=== PATIENT | male | born 1935 | race Caucasian/White ===

== ENCOUNTER 2023-04-04 10:54 | Outpatient (OUT) | payer MEDICARE, BC, SELFPAY ==
[2023-04-04 12:01] LABS: Estimated Average Glucose 169 mg/dL; Glycohemoglobin A1C 7.5 % (4.5-6.2)
== END 2023-04-04 10:55 | disposition home or self-care (01) ==
LOC: LAB 10:55
PROVIDERS: PCP Internal Medicine; Visit Provider Internal Medicine
DX: E11.65 Type 2 diabetes mellitus with hyperglycemia (principal)
CPT/HCPCS: 36415; 83036

== ENCOUNTER 2023-11-20 09:33 | Outpatient (OUT) | payer MEDICARE, BC, SELFPAY ==
[2023-11-21 08:11] LABS: PSA, Free 1.13 ng/mL
== END 2023-11-20 09:34 | disposition home or self-care (01) ==
LOC: LAB 09:35
PROVIDERS: PCP Internal Medicine; Visit Provider Physician Assistant
DX: N40.1 Benign prostatic hyperplasia with lower urinary tract symptoms (principal); R97.20 Elevated prostate specific antigen [PSA]
CPT/HCPCS: 36415; 84153; 84154

== ENCOUNTER 2023-11-20 09:39 | Outpatient (OUT) | payer MEDICARE, BC, SELFPAY ==
[2023-11-20 10:36] LABS: Basophils Percent Auto 0.7 % (0.2-2.0); Eosinophils Absolute Auto 0.7 10^3/uL (0.0-0.7); Eosinophils Percent Auto 11.2 % (0.9-7.0); Hematocrit 40.9 % (42.0-54.0); Immature Granulocytes Abs Auto 0.01 10^3/uL (0.00-0.03); Immature Granulocytes Pct Auto 0.2 % (0.0-0.5); Lymphocytes Absolute Auto 1.5 10^3/uL (1.2-3.8); Lymphocytes Percent Auto 26.2 % (20.5-60.0); Mean Corpuscular HGB Conc 31.8 g/dL (29.9-35.2); Mean Corpuscular Hemoglobin 27.8 pg (25.9-34.0); Mean Corpuscular Volume 87.4 fL (80.0-94.0); Mean Platelet Volume 9.8 fL (9.5-13.5); Monocytes Absolute Auto 0.5 10^3/uL (0.3-0.8); Monocytes Percent Auto 8.7 % (1.7-12.0); Neutrophils Absolute Auto 3.1 10^3/uL (1.4-6.5); Platelet Count 239 10^3/uL (150-450); Red Blood Count 4.68 10^6/uL (4.70-6.10); Red Cell Distribution Width 13.2 % (11.0-15.0); White Blood Count 5.9 10^3/uL (4.0-11.0)
[2023-11-20 10:42] LABS: Estimated Average Glucose 177 mg/dL; Glycohemoglobin A1C 7.8 % (4.5-6.2)
[2023-11-20 10:42] LABS: Microalbumin Urine Random 24.3 mg/dL (<=30.0)
[2023-11-20 10:44] LABS: Alanine Aminotransferase 22 U/L (16-63); Albumin Globulin Ratio 0.9; Albumin Level 3.2 g/dL (3.4-5.0); Alkaline Phosphatase 83 U/L (46-116); Anion Gap 12.2; Aspartate Amino Transferase 15 U/L (15-37); BUN Creatinine Ratio 13.3; Bilirubin Total 0.5 mg/dL (0.2-1.0); Calcium 8.6 mg/dL (8.5-10.1); Carbon Dioxide 27.8 mmol/L (21.0-32.0); Chloride 104 mmol/L (98-107); Chol HDL Ratio 2.8; Cholesterol 150 mg/dL (<=200); Estimated GFR (African America >60 (>=60); Estimated GFR (Non-African Ame >60 (>=60); Globulin 3.7 g/dL; Glucose 88 mg/dL (74-106); HDL Cholesterol 54 mg/dL (40-60); LDL Cholesterol Calculated 82.6 mg/dL; Sodium 140 mmol/L (136-145); Total Protein 6.9 g/dL (6.4-8.2); Triglycerides 67 mg/dL (<=150); VLDL CHOLESTEROL 13.4 mg/dL
== END 2023-11-20 09:40 | disposition home or self-care (01) ==
LOC: LAB 09:40
PROVIDERS: PCP Internal Medicine; Visit Provider Internal Medicine
DX: N40.1 Benign prostatic hyperplasia with lower urinary tract symptoms (principal); R97.20 Elevated prostate specific antigen [PSA]; E11.42 Type 2 diabetes mellitus with diabetic polyneuropathy; E11.65 Type 2 diabetes mellitus with hyperglycemia; I10 Essential (primary) hypertension
CPT/HCPCS: 36415; 80053; 80061; 82043; 83036; 84153; 84154; 85025

== ENCOUNTER 2024-05-29 11:00 | Outpatient (OUT) | payer MEDICARE, BC, SELFPAY ==
[2024-05-29 12:15] LABS: Estimated Average Glucose 148 mg/dL; Glycohemoglobin A1C 6.8 % (4.5-6.2)
== END 2024-05-29 11:01 | disposition home or self-care (01) ==
LOC: LAB 11:02
PROVIDERS: PCP Internal Medicine; Visit Provider Internal Medicine
DX: E11.65 Type 2 diabetes mellitus with hyperglycemia (principal)
CPT/HCPCS: 36415; 83036

== ENCOUNTER 2024-09-27 08:09 | Outpatient (OUT) | payer MEDICARE, BC, SELFPAY ==
--- OUTSIDE RECORDS SUMMARY | 2024-09-27 08:31 | XMS_ITS | CCD ---
Author Organization [facility] Care Team Providers Care Dispatch Specialist Name Role Phone Glenn Boswell Unavailable GLENN BOSWELL Primary Care Physician [phone] ELBERT, DR HERNANDEZ Admitting Unavailable BALL, DR HERNANDEZ Attending Unavailable BALL, DR HERNANDEZ Primary Care Unavailable BALL, DR HERNANDEZ Consulting Unavailable BALL, DR HERNANDEZ Admitting Unavailable BALL, DR HERNANDEZ Attending Unavailable BALL, DR HERNANDEZ Primary Care Unavailable BALL, DR HERNANDEZ Consulting Unavailable BALL, DR HERNANDEZ Admitting Unavailable BALL, DR HERNANDEZ Attending Unavailable BALL, DR HERNANDEZ Primary Care Unavailable BALL, DR HERNANDEZ Consulting Unavailable BALL, DR HERNANDEZ Admitting Unavailable BALL, DR HERNANDEZ Attending Unavailable BALL, DR HERNANDEZ Primary Care Unavailable BALL, DR HERNANDEZ Consulting Unavailable LISA, ASHLIE James Attending Unavailable Allergies Allergy Classification Reported Allergen(s) Allergy Type Date of Onset Reaction(s) Facility (19 sources) Simvastatin Drug Allergy Unknown [facility] Other (1 source) Simvastatin Drug Allergy [facility] Repository (1 source) No Known Medication Allergies; Translations: [No Known Medication Allergies] Propensity to adverse reactions (disorder) [facility] Repository Medications Current Medications Medication Drug Class(es) Dates Sig (Normalized) Sig (Original) amLODIPine 5 mg oral tablet (20 sources) Dihydropyridine Calcium Channel Jazmyn Start: 05-29-2024 take 1 tablet by mouth once daily Amlodipine 5 mg tablet Active 0 .ROUTE .COMPLEX 90 May 29, 2024 9:35am TAKE 1 TABLET BY MOUTH ONCE DAILY Start: 10-07-2023 End: 05-29-2024 take 1 tablet by mouth once daily Amlodipine 5 mg tablet Discontinued 5 MG PO Daily October 07, 2023 12:00am May 29, 2024 9:35am Start: 08-23-2019 amlodipine Ora l, Daily, Refills(s) 0 Start Date: 08/23/19 Status: Ordered take 1 tablet by madhav th once daily amLODIPine Besylate 5 MG TAKE 1 TABLET Orally Once a day for 90 days Active atorvastatin 20 mg oral tablet (18 sources) HMG-CoA Reductase Inhibitor Start: 10-07-2023 take 1 tablet by mouth once daily Atorvastatin 20 mg tablet Active 20 MG PO Daily October 07, 2023 12:00am Start: 12-29-2022 take 1 tablet by madhav th once daily in the evening Atorvastatin Calcium 20 MG 1 tablet Orally Once a day, in evening for 30 days December, Active Contour Next Gen Monitor - (3 sources) Start: 09-25-2023 Contour Next G en Monitor - as directed to check BS daily for 365 days Sep, Active Contour Next Test - (13 sources) Start: 02-07-2023 Contour Next T est - Use to test home BS In Vitro twice daily for 30 days Jan, Active finasteride 5 mg oral tablet (2 sources) 5-alpha Reductase Inhibitor Start: 09-25-2024 take 1 tablet by mouth once daily Finasteride 5 mg tablet Active 5 MG PO Daily 90 90 September 25, 2024 12:00am Start: 11-28-2023 take 1 tablet by madhav th once daily finasteride 5 mg Tab 5 mg = 1 tab(s), Oral, Daily, # 90 tab(s), Refills(s) 3, Pharmacy: [facility], 170, cm, 11/28/23 11:52:00 EDT, Height/Length Dosing, 102.5, kg, 11/28/23 11:52:00 EDT, Weight Dosing Start Date: 11/28/23 Status: Ordered Insulin Nph And Regular Human (20 sources) Insulin Start: 08-31-2024 Insulin Nph An d Regular Human (Novolin 70-30 Flexpen U-100) 100 unit/mL (70-30) insulin pen Active 0 .ROUTE .COMPLEX August 31, 2024 8:55am INJECT 30 UNITS SUBCUTANEOUSLY (UNDER THE SKIN) 30 MINUTES BEFORE BREAKFAST and INJECT 20 UNITS SUBCUTANEOUSLY (UNDER THE SKIN) 30 mins BEFORE evening meal Start: 04-16-2024 End: 08-31-2024 Insulin Nph And Regular Herminia n (Humulin 70/30 U-100 Kwikpen) 100 unit/mL (70-30) insulin pen Discontinued 0 SUBCUT Twice daily April 16, 2024 9:40am August 31, 2024 8:55am inject 30 units subcutaneously 30 MINS before breakfast and 20 units 30 MINUTES BEFORE EVENING MEAL Start: 04-16-2024 Insulin Nph An d Regular Human (Humulin 70/30 U-100 Kwikpen) 100 unit/mL (70-30) insulin pen Active 0 SUBCUT Twice daily 15 April 16, 2024 10:40am inject 30 units subcutaneously 30 MINS before breakfast and 20 units 30 MINUTES BEFORE EVENING MEAL Start: 10-07-2023 End: 04-16-2024 Insulin Nph And Regular Herminia n (Humulin 70/30 U-100 Kwikpen) 100 unit/mL (70-30) insulin pen Discontinued 30 UNIT SUBCUT Once October 07, 2023 12:00am April 16, 2024 9:43am inject 30 units subcutaneously 30 MINS before breakfast and 15 units 30 MINUTES BEFORE EVENING MEAL Start: 10-07-2023 End: 04-16-2024 Insulin Nph And Regular Herminia n (Humulin 70/30 U-100 Kwikpen) 100 unit/mL (70-30) insulin pen Discontinued 30 UNIT SUBCUT Once October 07, 2023 1:00am April 16, 2024 10:43am inject 30 units subcutaneously 30 MINS before breakfast and 15 units 30 MINUTES BEFORE EVENING MEAL Start: 10-07-2023 Insulin Nph An d Regular Human (Humulin 70/30 U-100 Kwikpen) 100 unit/mL (70-30) insulin pen Active 30 UNIT SUBCUT Once October 07, 2023 1:00am inject 30 units subcutaneously 30 MINS before breakfast and 15 units 30 MINUTES BEFORE EVENING MEAL Start: 10-07-2023 Insulin Nph An d Regular Human (Humulin 70/30 U-100 Kwikpen) 100 unit/mL (70-30) insulin pen Active 30 UNIT SUBCUT Once October 07, 2023 12:00am inject 30 units subcutaneously 30 MINS before breakfast and 15 units 30 MINUTES BEFORE EVENING MEAL HumuLIN 70/30 Kw ikPen (70-30) 100 UNIT/ML inject 30 units subcutaneously 30 MINS before breakfast and 15 units 30 MINUTES BEFORE EVENING MEAL for 26 Active HumuLIN 70/30 Kw ikPen (70-30) 100 UNIT/ML as directed Subcutaneous 26 units SC 30 minute before bkfst and 14 units SC 30 min before evening meal Active lisinopril 40 mg oral tablet (20 sources) Angiotensin Converting Enzyme Inhibitor Start: 06-10-2024 take 1 tablet by mouth once daily Lisinopril 40 mg tablet Active 40 MG PO Daily June 10, 2024 8:01am Start: 05-29-2024 End: 06-10-2024 take 1 tablet by mouth once daily Lisinopril 20 mg tablet Discontinued 0 .ROUTE .COMPLEX May 29, 2024 9:35am June 10, 2024 8:02am TAKE 1 TABLET BY MOUTH ONCE DAILY Start: 10-07-2023 End: 05-29-2024 take 1 tablet by mouth once daily Lisinopril 40 mg tablet Discontinued 40 MG PO Daily October 07, 2023 12:00am May 29, 2024 9:35am Start: 07-05-2023 take 1 tablet by madhav th every twenty-four hours Lisinopril 40 MG 1 tablet Orally Once a day for 90 days Jun, Active Start: 08-23-2019 lisinopril Ora l, Daily, Refills(s) 0 Start Date: 08/23/19 Status: Ordered Lisinopril 40 MG TAKE 1 TABLET DAILY Orally Once a day for 30 days Active Lisinopril 20 MG TAKE 1 TABLET DAILY Orally Once a day Active metFORMIN hydrochloride 1000 mg oral tablet (20 sources) Biguanide Start: 05-29-2024 take 1 tablet by mouth once daily before breakfast Metformin 1,000 mg tablet Active 0 .ROUTE .COMPLEX May 29, 2024 9:35am TAKE 1 TABLET BY MOUTH DAILY IN THE MORNING BEFORE BREAKFAST Start: 10-07-2023 End: 05-29-2024 take 1 tablet by mouth once daily Metformin 1,000 mg tablet Discontinued 1000 MG PO Daily October 07, 2023 12:00am May 29, 2024 9:35am Start: 08-23-2019 metformin Oral , Refills(s) 0 Start Date: 08/23/19 Status: Ordered take 1 tablet by madhav th once daily metFORMIN HCl 1000 MG TAKE 1 TABLET Orally Once a day for 90 days Active Pen Needle, Diabetic (1 source) Start: 05-13-2024 Pen Needle, Diabetic Active 0 .ROUTE .COMPLEX May 13, 2024 9:00pm USE DIRECTED TWICE DAILY tamsulosin hydrochloride 0.4 mg oral capsule (20 sources) alpha-Adrenergi c Jazmyn Start: 10-07-2023 End: 11-22-2024 take 1 capsule by mouth twice daily Tamsulosin 0.4 mg capsule Active 0.4 MG PO Twice daily October 07, 2023 12:00am Start: 08-29-2022 End: 08-24-2023 Tamsulosin HCl 0.4 MG 1 Oral ly twice daily Aug, Active True Metrix Meter w/Device (3 sources) Start: 09-25-[address] w/Device as directed for 30 days True Metrix test strips Sep, Active Problems Active Problems Problem Classification Problem Date Documented Date Episodic/Chronic Abdominal hernia (1 source) Umbilical hernia; Translations: [Umbilical hernia without obstruction or gangrene] Episodic Acute bronchitis (1 source) Acute bronchitis; Translations: [Acute bronchitis due to other specified organisms] Episodic Allergic reactions (19 sources) Allergic contact dermatitis caused by chemical; Translations: [Allergic contact dermatitis due to other chemical products] Episodic Deficiency and other anemia (1 source) Chronic anemia; Translations: [Anemia in other chronic diseases classified elsewhere] Onset: 09-11-2015 Chronic Diabetes mellitus with complications (20 sources) Type 2 diabetes mellitus; Translations: [Type 2 diabetes mellitus with hyperglycemia] Onset: 08-22-2022 Chronic Diabetes mellitus without complication (5 sources) Diabetes mellitus; Translations: [Type 2 diabetes mellitus without complication] Onset: 11-28-2023 02-22-2019 Chronic Diabetes mellitus without complication (1 source) Glycosuria 11-28-2023 Episodic Disorders of lipid metabolism (20 sources) Mixed hyperlipidemia; Translations: [Mixed hyperlipidemia] Onset: 09-23-2016 02-22-2019 Chronic Essential hypertension (20 sources) Essential hypertension; Translations: [Essential (primary) hypertension] Onset: 12-31-2022 02-22-2019 Chronic Genitourinary symptoms and ill-defined conditions (20 sources) Nocturia; Translations: [Increased frequency of urination] Resolved: 01-25-2019 Episodic Gout and other crystal arthropathies (1 source) Primary gout; Translations: [Idiopathic gout, unspecified site] Chronic Headache; including migraine (4 sources) Headache 02-22-2019 Episodic Hyperplasia of prostate (20 sources) Nocturia due to benign prostatic hypertrophy; Translations: [Benign prostatic hyperplasia with lower urinary tract symptoms] Onset: 10-21-2022 Chronic Immunizations and screening for infectious disease (2 sources) Vaccination given; Translations: [Encounter for immunization] Episodic Osteoarthritis (7 sources) Arthritis; 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, primary osteoarthritis of the hand] Onset: 10-28-2013 02-22-2019 Chronic Other aftercare (20 sources) Long-term current use of insulin; 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] 10-07-2023 Episodic Other aftercare (9 sources) intermodal truck driver (current) use of insulin; Translations: [Long-term (current) use of insulin] Episodic Other aftercare (6 sources) Other intermediate project manager (current) drug therapy; Translations: [OTH HUMAN RESOURCES BENEFITS ADMINISTRATOR CURRENT DRUG THERAPY] Onset: 12-29-2022 Episodic Other aftercare (1 source) Long-term current use of drug therapy; Translations: [Other residential (current) drug therapy] Episodic Other diseases of veins and lymphatics (4 sources) Venous insufficiency of leg; Translations: [Venous insufficiency (chronic) (peripheral)] 10-11-2023 Episodic Other diseases of veins and lymphatics (4 sources) Venous insufficiency (chronic) (peripheral); Translations: [Venous (peripheral) insufficiency, unspecified] 10-11-2023 Episodic Other injuries and conditions due to external causes (1 source) History of fall; Translations: [History of falling] Episodic Other nutritional; endocrine; and metabolic disorders (19 sources) Obese class I; Translations: [Obesity, unspecified] Chronic Other nutritional; endocrine; and metabolic disorders (2 sources) Obesity, unspecified; Translations: [Obesity, unspecified] Chronic Other nutritional; endocrine; and metabolic disorders (16 sources) Body mass index 30+ - obesity; Translations: [Body mass index (BMI) 34.0-34.9, adult] 10-07-2023 Chronic Other nutritional; endocrine; and metabolic disorders (16 sources) Obesity caused by energy imbalance; Translations: [Other obesity due to excess calories] 10-07-2023 Chronic Other nutritional; endocrine; and metabolic disorders (1 source) Morbid obesity; Translations: [Morbid (severe) obesity due to excess calories] Onset: 08-21-1959 Chronic Other nutritional; endocrine; and metabolic disorders (2 sources) Obesity; Translations: [Obesity, unspecified] 05-22-2024 Chronic Other nutritional; endocrine; and metabolic disorders (4 sources) Other obesity due to excess calories Chronic Other nutritional; endocrine; and metabolic disorders (4 sources) Body mass index (BMI) 34.0-34.9, adult Chronic Other screening for suspected conditions (not mental disorders or infectious disease) (9 sources) Raised prostate specific antigen; Translations: [Elevated prostate specific antigen [PSA]] Onset: 11-24-2018 08-23-2019 Episodic Other upper respiratory infections (1 source) Acute maxillary sinusitis; Translations: [Acute maxillary sinusitis, unspecified] Episodic Rheumatoid arthritis and related disease (20 sources) Inflammatory polyarthropathy; Translations: [Inflammatory polyarthropathy] Chronic Skin and subcutaneous tissue infections (20 sources) Impetigo; Translations: [Impetigo, unspecified] Episodic Spondylosis; intervertebral disc disorders; other back problems (1 source) Lumbar spondylosis; Translations: [Spondylosis without myelopathy or radiculopathy, lumbar region] 09-25-2024 Chronic Unclassified (8 sources) Finding of sensation of bladder 01-25-2019 Viral infection (20 sources) Herpes zoster with complication; Translations: [Zoster with other complications] Episodic Past or Other Problems Problem Classification Problem Date Documented Da te Episodic/Chronic Deficiency and other anemia (1 source) Anemia; Translations: [Anemia, unspecified] Onset: 12-06-2015 Episodic E Codes: Adverse effects of medical drugs (1 source) Adverse effect of unspecified drugs, medicaments and biological substances, initial encounter; Translations: [Adverse effect of unsp drug/meds/biol subst, init] Onset: 12-09-2013 Episodic Results Test Name Value Interpretation Reference Range Facility [facility] 11-29-2023 Lab Reports [id number] [facility]enson 11-29-2023 Screens [id number] F [facility] Ambulatory Visit Summaryon 0 11-28-2023 Ambulatory Visit Summary LISA PEREZ :1935 Visit Date:11/28/2023 Ambulatory Visit Instructions Your Diagnosis Elevated PSA BPH with urinary obstruction Diabetes Your Care Team Attending Physician - ASHLIE GONZALEZ PA-C Primary Care Physician - GLENN BOSWELL DO This Is Your Medications List finasteride (finasteride 5 mg Tab) tamsulosin (Flomax 0.4 mg Cap) Contact prescribing physician if questions or concerns amlodipine lisinopril metformin Procedures Performed Cataract, History of tonsillectomy, History of umbilical hernia surgery. Discharge Vitals Temperature (Oral) 36.7 ?C Heart Rate (Peripheral) 74 Respiratory Rate 16 Blood Pressure 140/80 Height 67 in Height 170 cm Weight 225.5 lb Weight 102.5 kg BMI 35.47 What to do next You Need to Schedule the Following Appointments Follow Up with ASHLIE GONZALEZ PA-C, JOSE When: Comments: 1 yr w/ PSA (and new med) Where: [address] [place] [id number] Medications What How Much When Instructions New finasteride (finasteride 5 mg Tab) 1 Tablets By Mouth Every day Refills: 3 Pickup at [facility] Unchanged tamsulosin (Flomax 0.4 mg Cap) 1 Capsules By Mouth 2 times a day Duration: 90 Days Pickup at [facility] Unchanged amlodipine By Mouth Every day Contact prescribing physician if questions or concerns Unchanged lisinopril By Mouth Every day Contact prescribing physician if questions or concerns Unchanged metformin By Mouth Contact prescribing physician if questions or concerns Pharmacy Information [facility]: [address] [facility] [address] [place], [place] [phone] Allergies No Known Medication Allergies Problems Ongoing - Any problem that you are currently receiving treatment for. BPH with urinary obstruction Diabetes Elevated PSA Feeling of incomplete bladder emptying Glucosuria Hyperlipidemia Hypertension Incomplete emptying of bladder Nocturia Urinary urgency Weak urine stream Historical - Any problem that you are no longer receiving treatment for. Arthritis Headache Urine frequency Patient Survey You may receive a survey via text or e-mail asking about your office visit. Please share your experience with us by completing your survey. We appreciate your feedback and thank you for choosing us for your care. Education Materials Benign Prostatic Hyperplasia Benign prostatic hyperplasia (BPH) is an enlarged prostate gland that is caused by the normal aging process. The prostate may get bigger as a man gets older. The condition is not caused by cancer. The prostate is a walnut-sized gland that is involved in the production of semen. It is located in front of the rectum and below the bladder. The bladder stores urine. The urethra carries stored urine out of the body. An enlarged prostate can press on the urethra. This can make it harder to pass urine. The buildup of urine in the bladder can cause infection. Back pressure and infection may progress to bladder damage and kidney (renal) failure. What are the causes? This condition is part of the normal aging process. However, not all men develop problems from this condition. If the prostate enlarges away from the urethra, urine flow will not be blocked. If it enlarges toward the urethra and compresses it, there will be problems passing urine. What increases the risk? This condition is more likely to develop in men older than 50 years. What are the signs or symptoms? Symptoms of this condition include: ? Getting up often during the night to urinate. ? Needing to urinate frequently during the day. ? Difficulty starting urine flow. ? Decrease in size and strength of your urine stream. ? Leaking (dribbling) after urinating. ? Inability to pass urine. This needs immediate treatment. ? Inability to completely empty your bladder. ? Pain when you pass urine. This is more common if there is also an infection. ? Urinary tract infection (UTI). How is this diagnosed? This condition is diagnosed based on your medical history, a physical exam, and your symptoms. Tests will also be done, such as: ? A post-void bladder scan. This measures any amount of urine that may remain in your bladder after you finish urinating. ? A digital rectal exam. In a rectal exam, your health care provider checks your prostate by putting a lubricated, gloved finger into your rectum to feel the back of your prostate gland. This exam detects the size of your gland and any abnormal lumps or growths. ? An exam of your urine (urinalysis). ? A prostate specific antigen (PSA) screening. This is a blood test used to screen for prostate cancer. ? An ultrasound. This test uses sound waves to electronically produce a picture of your prostate gland. Your health care provider may refer you to a specialist in kidney and prostate dise (more content not included)... Normal [facility] Patient Educationon 11-28-19 Patient Education Urology Benign Prostatic Hyperplasia Benign prostatic hyperplasia (BPH) is an enlarged prostate gland that is caused by the normal aging process. The prostate may get bigger as a man gets older. The condition is not caused by cancer. The prostate is a walnut-sized gland that is involved in the production of semen. It is located in front of the rectum and below the bladder. The bladder stores urine. The urethra carries stored urine out of the body. An enlarged prostate can press on the urethra. This can make it harder to pass urine. The buildup of urine in the bladder can cause infection. Back pressure and infection may progress to bladder damage and kidney (renal) failure. What are the causes? This condition is part of the normal aging process. However, not all men develop problems from this condition. If the prostate enlarges away from the urethra, urine flow will not be blocked. If it enlarges toward the urethra and compresses it, there will be problems passing urine. What increases the risk? This condition is more likely to develop in men older than 50 years. What are the signs or symptoms? Symptoms of this condition include: ? Getting up often during the night to urinate. ? Needing to urinate frequently during the day. ? Difficulty starting urine flow. ? Decrease in size and strength of your urine stream. ? Leaking (dribbling) after urinating. ? Inability to pass urine. This needs immediate treatment. ? Inability to completely empty your bladder. ? Pain when you pass urine. This is more common if there is also an infection. ? Urinary tract infection (UTI). How is this diagnosed? This condition is diagnosed based on your medical history, a physical exam, and your symptoms. Tests will also be done, such as: ? A post-void bladder scan. This measures any amount of urine that may remain in your bladder after you finish urinating. ? A digital rectal exam. In a rectal exam, your health care provider checks your prostate by putting a lubricated, gloved finger into your rectum to feel the back of your prostate gland. This exam detects the size of your gland and any abnormal lumps or growths. ? An exam of your urine (urinalysis). ? A prostate specific antigen (PSA) screening. This is a blood test used to screen for prostate cancer. ? An ultrasound. This test uses sound waves to electronically produce a picture of your prostate gland. Your health care provider may refer you to a specialist in kidney and prostate diseases (urologist). How is this treated? Once symptoms begin, your health care provider will monitor your condition (active surveillance or watchful waiting). Treatment for this condition will depend on the severity of your condition. Treatment may include: ? Observation and yearly exams. This may be the only treatment needed if your condition and symptoms are mild. ? Medicines to relieve your symptoms, including: ? Medicines to shrink the prostate. ? Medicines to relax the muscle of the prostate. ? Surgery in severe cases. Surgery may include: ? Prostatectomy. In this procedure, the prostate tissue is removed completely through an open incision or with a laparoscope or robotics. ? Transurethral resection of the prostate (TURP). In this procedure, a tool is inserted through the opening at the tip of the penis (urethra). It is used to cut away tissue of the inner core of the prostate. The pieces are removed through the same opening of the penis. This removes the blockage. ? Transurethral incision (TUIP). In this procedure, small cuts are made in the prostate. This lessens the prostate's pressure on the urethra. ? Transurethral microwave thermotherapy (TUMT). This procedure uses microwaves to create heat. The heat destroys and removes a small amount of prostate tissue. ? Transurethral needle ablation (TUNA). This procedure uses radio frequencies to destroy and remove a small amount of prostate tissue. ? Interstitial laser coagulation (ILC). This procedure uses a laser to destroy and remove a small amount of prostate tissue. ? Transurethral electrovaporization (TUVP). This procedure uses electrodes to destroy and remove a small amount of prostate tissue. ? Prostatic urethral lift. This procedure inserts an implant to push the lobes of the prostate away from the urethra. Follow these instructions at home: ? Take [id number] and prescription medicines only as told by your health care provider. ? Monitor your symptoms for any changes. Contact your health care provider with any changes. ? Avoid drinking large amounts of liquid before going to bed or out in public. ? Avoid or reduce how much caffeine or alcohol you drink. ? Give yourself time when you urinate. ? Keep all follow-up visits. This is important. Contact a health care provider if: ? You have unexplained back pain. ? Your symptoms do not get better with treatment. ? You develop side effects from the medicine (more content not included)... Normal [facility] Urology Office/Clinic Noteon 11-28-2023 Urology Office/Clinic Note Chief Complaint 1 yr w/ PSA HPI Staff PRW pt 1yr PSA DX: Elevated PSA & BPH *Tamsulosin 0.4mg BID PSA 11/20/23- 11.0 & 10.3% Dysuria: denies Incomplete bladder emptying: yes Hematuria: denies Frequency: yes Urgency: yes Nocturia: 2x a night Stream: weak Leaking: yes Post void dripping: yes Wearing pads/ Depends: denies Urge incontinence: denies Stress incontinence: denies Incontinence without Sensory Awareness: denies Abdominal pain: denies Flank pain: denies Sexual complaints: _ History of Present Illness staff HPI reviewed and agree. Review of Systems PHQ Score Initial Depression Screen Score: 0 SCORE no fever, chills, malaise, myalgia. no rash/lesions. no chest pain, palpitations, or SOB. no abdominal pain, nausea, vomiting. no unilateral calf swelling, redness, pain Physical Exam Vitals & Measurements T: 36.7 ?C(Oral) HR: 74(Peripheral) RR: 16 BP: 140/80 HT: 67 in HT: 170 cm WT: 102.5 kg WT: 225.5 lb BMI: 35.47 General: nontoxic, NAD Mouth: moist mucosa Lungs: normal respiratory effort Cardio: regular rate, good distal perfusion Abdomen: nondistended, no suprapubic distention or tenderness, no CVA tenderness Neurologic: Grossly normal Skin: No rashes or suspicious lesions CASSANDRA: benign. no asymmetry, induration, nodules. Assessment/Plan Dr. Nichols pt CINTHIA 11 - not interested in tx at this time. 1. Elevated PSA (R97.20: Elevated prostate specific antigen [PSA]) PSA 09/29/16 - 3.38 10/04/17 - 3.26 10/26/18 - 6.43 11/29/18 - 5.3 & 12.6% 10/24/22 - 9.9 11/20/23 - 11.0 & 10.3% Discussed prostate cancer rates in men >80yo, discussed dx and tx options. Pt wishes to keep checking annual PSA and only act if it markedly increases. -PSA in 1 year (to note, anticipate it will drop due to addition of finasteride) 2. BPH with urinary obstruction (N40.1: Benign prostatic hyperplasia with lower urinary tract symptoms) IPSS 24, QoL 3. worse since last year. most bothersome is urgency and frequency. Taking Tamsulosin 0.4mg bid. Weak stream. States urinary sxs are becoming bothersome. We discussed current dose and optional changes: adding an additional agent such as finasteride/dutasteride I discussed with the patient the different surgical treatment options for bladder outlet obstruction including TURP, Rezum, and Urolift. Pt prefers to continue w medication management, not surgery. Open to trying addition of finasteride. Understands he will not see effect for 6 mos. -Start Finasteride 5mg qd. Discussed the medication side effects, and the patient will monitor closely for these, as well as for symptom improvement. If severe side effects occur, the medication should be stopped and the office notified. 3. Diabetes (E11.9: Type 2 diabetes mellitus without complications) A1c 04/04/23 - 7.5 11/20/23 - 7.8 UA today shows 250mg/dL glucose and 100mg/dL protein. Discussed uncontrolled DM contribution to urinary frequency. Follow-up With When Contact Information ASHLIE GONZALEZ PA-C, URL [phone] [place] [address] [phone] Additional Instructions: 1 yr w/ PSA (and new med) Patient Education Benign Prostatic Hyperplasia Documentation recorded by the cary Henson accurately reflects the services(s) I performed and decisions made by me. Authenticated by Ashlie Gonzalez PA-C on 11/28/2023 12:28:12. IVenus, personally scribed for Ashlie Gonzalez PA-C on 11/28/2023 12:15:11. . Problem List/Past Medical History Ongoing BPH with urinary obstruction Diabetes Elevated PSA Feeling of incomplete bladder emptying Glucosuria Hyperlipidemia Hypertension Incomplete emptying of bladder Nocturia Urinary urgency Weak urine stream Historical Arthritis Headache Urine frequency Procedure/Surgical History Cataract, History of tonsillectomy, History of umbilical hernia surgery. Medications amlodipine, Oral, Daily Flomax 0.4 mg Cap, 0.4 mg= 1 cap(s), Oral, BID, 3 refills lisinopril, Oral, Daily metformin, Oral Allergies No Known Medication Allergies Social History Alcohol Current, 1-2 times per year, 02/22/2019 Tobacco - Denies Tobacco Use, 02/22/2019 Former smoker, quit more than 30 days ago Tobacco Use:. Cigarettes, 11/28/2023 Family History Primary malignant neoplasm of lung: Father. Immunizations Vaccine Date Status SARS-CoV-2 (COVID-19) [id number] 08/18/2022 Recorded influenza virus vaccine, inactivated 08/08/2022 Recorded influenza virus vaccine, inactivated 05/27/2021 Recorded SARS-CoV-2 (COVID-19) Ad26 vaccine 10/29/2020 Recorded SARS-CoV-2 (COVID-19) mRNA-1273 vaccine 10/27/2020 Recorded SARS-CoV-2 (COVID-19) Ad26 vaccine 09/30/2020 Recorded SARS-CoV-2 (COVID-19) mRNA-1273 vaccine 09/28/2020 Recorded influenza virus vaccine, inactivated 06/01/2020 Recorded influenza virus vaccine, inactivated 02/22/2019 Rec (more content not included)... Normal [facility] Comment on above: Result Comment: Elec tronically Signed By: ASHLIE GONZALEZ PA-C\.br\Date and Time Signed: 11/28/23 12:28 EDT\.br\Electronically Co-Signed By: Venus Henson\.br\Date and Time Co-Signed: 11/28/23 12:15 EDT Lab Reportson 11-22-2023 Lab Reports [id number] [facility] Basophils Auto (Bld) [#/Vol] on 11-20-2023 Basophils (Bld) [#/Vol] 0.0 10 3/uL 0.0-0.1 [facility] Basophils/100 WBC Auto (Bld) on 11-20-2023 Basophils/100 WBC (Bld) 0.7 % 0.2-2.0 [facility] Cholesterol in LDL Calc [Mas s/Vol]on 11-20-2023 Cholesterol in LDL [Mass/Vol] 82.6 mg/dL [facility] Comment on above: <100 mg/dl [id number] 0-129 mg/dl NEAR OR ABOVE [id number] mg/dl BORDERLINE [id number] mg/dl HIGH>190 mg/dl VERY HIGH Cholesterol in VLDL Calc [Ma ss/Vol]on 11-20-2023 Cholesterol in VLDL [Mass/Vol] 13.4 mg/dL [facility] Eosinophils/100 WBC Auto (Bl d)on 11-20-2023 Eosinophils/100 WBC (Bld) 11.2 % 0.9-7.0 [facility] Erythrocyte distribution wid th Auto (RBC) [Ratio]on 11-20-2023 Erythrocyte distribution width (RBC) [Ratio] 13.2 % 11.0-15.0 [facility] Estimated glomerular filtrat ion rate (GFR) non- Americanon 11-20-2023 GFR/1.73 sq M.predicted among non-blacks MDRD (S/P/Bld) [Vol rate/Area] mL/min/{1.73_m2} >=60 [facility] Globulin Calc (S) [Mass/Vol] on 11-20-2023 Globulin (S) [Mass/Vol] 3.7 g/dL [facility] Glucose mean value [Mass/vol ume] in Blood Estimated from glycated hemoglobinon 11-20-2023 Average glucose Estimated from glycated hemoglobin (Bld) [Mass/Vol] 177 mg/dL [facility] Hematocrit Auto (Bld) [Volum e fraction]on 11-20-2023 Hematocrit (Bld) [Volume fraction] 40.9 % 42.0-54.0 [facility] Hemoglobin [Mass/volume] in Bloodon 11-20-2023 Hemoglobin (Bld) [Mass/Vol] 13.0 g/dL 14.0-18.0 [facility] Laboratory - Chemistry and C hemistry - challengeon 11-20-2023 Albumin [Mass/Vol] 3.2 g/dL 3.4-5.0 [facility] ALP [Catalytic activity/Vol] 83 U/L 46-116 [facility] ALT [Catalytic activity/Vol] 22 U/L 16-63 [facility] AST [Catalytic activity/Vol] 15 U/L 15-37 [facility] Bilirubin [Mass/Vol] 0.5 mg/dL 0.2-1.0 [facility] Calcium [Mass/Vol] 8.6 mg/dL 8.5-10.1 [facility] Chloride [Moles/Vol] 104 mmol/L 98-107 [facility] Cholesterol [Mass/Vol] 150 mg/dL <=200 [facility] Cholesterol in HDL [Mass/Vol] 54 mg/dL 40-60 [facility] Comment on above: > or =60 mg/dl - LOW CARDIOVASCULAR RISK<40 mg/dl - HIGH CARDIOVASCULAR RISK CO2 [Moles/Vol] 27.8 mmol/L 21.0-32.0 [facility] Creatinine [Mass/Vol] 1.13 mg/dL 0.70-1.30 [facility] GFR/1.73 sq M.predicted MDRD (S/P/Bld) [Vol rate/Area] mL/min/{1.73_m2} >=60 [facility] Glucose [Mass/Vol] 88 mg/dL 74-106 [facility] Potassium [Moles/Vol] 4.0 mmol/L 3.5-5.1 [facility] Protein [Mass/Vol] 6.9 g/dL 6.4-8.2 [facility] Sodium [Moles/Vol] 140 mmol/L 136-145 [facility] Triglyceride [Mass/Vol] 67 mg/dL <=150 [facility] Urea nitrogen [Mass/Vol] 15.0 mg/dL 7.0-18.0 [facility] Urea nitrogen/Creatinine [Mass ratio] 13.3 mg/mg [facility] Laboratory - Hematology and Cell countson 11-20-2023 HbA1c (Bld) [Mass fraction] 7.8 % 4.5-6.2 [facility] Comment on above: ADA RECOMMENDED LIMI T 4.0 - 6.0ADA THERAPEUTIC TARGET < 7.0ACTION SUGGESTED> 7.0 Immature granulocytes/100 WBC (Bld) 0.2 % 0.0-0.5 [facility] Leukocytes [#/volume] correc laina for nucleated erythrocytes in Blood by Automated counon 11-20-2023 WBC corrected for nucl RBC Auto (Bld) [#/Vol] 5.9 10 3/uL 4.0-11.0 [facility] Lymphocytes Auto (Bld) [#/Vo l]on 11-20-2023 Lymphocytes (Bld) [#/Vol] 1.5 10 3/uL 1.2-3.8 [facility] Lymphocytes/100 WBC Auto (Bl d)on 11-20-2023 Lymphocytes/100 WBC (Bld) 26.2 % 20.5-60.0 [facility] MCH Auto (RBC) [Entitic mass ]on 11-20-2023 MCH (RBC) [Entitic mass] 27.8 pg 25.9-34.0 [facility] MCHC Auto (RBC) [Mass/Vol]on 11-20-2023 MCHC (RBC) [Mass/Vol] 31.8 g/dL 29.9-35.2 [facility] MCV Auto (RBC) [Entitic vol] on 11-20-2023 MCV (RBC) [Entitic vol] 87.4 fL 80.0-94.0 [facility] Microalbumin [Mass/volume] i n Urineon 11-20-2023 Albumin DL <= 20 mg/L (U) [Mass/Vol] 24.3 mg/dL <=30.0 [facility] Monocytes Auto (Bld) [#/Vol] on 11-20-2023 Monocytes (Bld) [#/Vol] 0.5 10 3/uL 0.3-0.8 [facility] Monocytes/100 WBC Auto (Bld) on 11-20-2023 Monocytes/100 WBC (Bld) 8.7 % 1.7-12.0 [facility] Neutrophils Auto (Bld) [#/Vo l]on 11-20-2023 Neutrophils (Bld) [#/Vol] 3.1 10 3/uL 1.4-6.5 [facility] Neutrophils/100 WBC Auto (Bl d)on 11-20-2023 Neutrophils/100 WBC (Bld) 53.0 % 43.0-75.0 [facility] No Panel Informationon 11-19 Eosinophils # (Auto) 0.7 10 3/uL 0.0-0.7 [facility] Free Prostate Specific Antigen 1.13 ng/mL N/A [facility] Comment on above: Sav ECLIA methodol ogy. Immature Granulocyte # (Auto) 0.01 10 3/uL 0.00-0.03 [facility] Prostate Specific Antigen Total 11.0 ng/mL 0.0-4.0 [facility] Comment on above: Sav ECLIA methodol ogy.According to the [employer], Serum PSAshould decrease and remain at undetectable levels afterradical prostatectomy. The AUA defines biochemicalrecurrence as an initial PSA value 0.2 ng/mL or greaterfollowed by a subsequent confirmatory PSA value 0.2 ng/mLor greater. Values obtained with different assay methods orkits cannot be used interchangeably. Results cannot beinterpreted as absolute evidence of the presence or absenceof malignant disease. Platelet mean volume Auto (B ld) [Entitic vol]on 11-20-2023 Platelet mean volume (Bld) [Entitic vol] 9.8 fL 9.5-13.5 [facility] Platelets Auto (Bld) [#/Vol] on 11-20-2023 Platelets (Bld) [#/Vol] 239 10 3/uL 150-450 [facility] RBC Auto (Bld) [#/Vol]on RBC (Bld) [#/Vol] 4.68 10 6/uL 4.70-6.10 [facility] Serum or plasma albumin/glob ulin mass ratioon 11-20-2023 Albumin/Globulin [Mass ratio] 0.9 {ratio} [facility] Serum or plasma anion gap de terminationon 11-20-2023 Anion gap [Moles/Vol] 12.2 mmol/L [facility] Serum or plasma free prostat e specific antigen (PSA)/total PSA ratioon 11-20-2023 Free PSA/Total PSA [Mass fraction] 10.3 % . [facility] Comment on above: The table below list s the probability of prostate cancer formen with non-suspicious CASSANDRA results and total PSA between4 and 10 ng/mL, by patient age (Tennille et al, MARVIN 1998,279:1542). % Free PSA 50-64 yr 65-75 yr 0.00-10.00% 56% 55% 10.01-15.00% 24% 35% 15.01-20.00% 17% 23% 20.01-25.00% 10% 20% >25.00% 5% 9%Please note: Tennille et al did not make specific recommendations regarding the use of percent free PSA for any other population of men.Performed at: [facility] [id number] Director: Sylvain Lopez PhD, Phone: [phone] Serum or plasma total choles terol/high density lipoprotein (HDL) cholesterol mass lorie 11-20-2023 Cholesterol.total/C holesterol in HDL [Mass ratio] 2.8 {ratio} [facility] Comment on above: 3.3 - 4.4 LOW RISK4. 4 - 7.1 AVERAGE RISK7.1 - 11.0 MODERATE RISK>11.0 HIGH RISK CBC AUTO DIFFon 12-29-2022 BASO # 0.0 103/ul Normal 0.0-0.1 [facility] Comment on above: Performed By: #### C BC #### [facility] [address] [address] [address] Mariaelena Johnson Basophils/100 WBC (Bld) 0.7 % Normal 0.2-2.0 [facility] Comment on above: Performed By: #### C BC #### [facility] [address] [address] [address] Mariaelena Johnson EO # 0.4 103/ul Normal 0.0-0.7 [facility] Comment on above: Performed By: #### C BC #### [facility] [id number] Mariaelena Johnson Eosinophils/100 WBC (Bld) 6.4 % Normal 0.9-7.0 [facility] Comment on above: Performed By: #### C BC #### [facility] [address] [address] [address] Mariaelena Johnson Erythrocyte distribution width (RBC) [Ratio] 14.2 % Normal 11.0-15.0 [facility] Comment on above: Performed By: #### C BC #### [facility] [address] [place] [address] Dr. Mariaelena Johnson Hematocrit (Bld) [Volume fraction] 41.4 % Critically low 42.0-54.0 [facility] Comment on above: Performed By: #### C BC #### [facility] [address] [place] [address] Dr. Mariaelena Johnson Hemoglobin (Bld) [Mass/Vol] 13.3 g/dL Critically low 14.0-18.0 [facility] Comment on above: Performed By: #### C BC #### [facility] [address] [place] [address] Dr. Mariaelena Johnson IG # 0.01 10e3/ul Normal 0.00-0.03 [facility] Comment on above: Performed By: #### C BC #### [facility] [address] [place] [address] Dr. Mariaelena Johnson IG % 0.2 % Normal 0.0-0.5 [facility] Comment on above: Performed By: #### C BC #### [facility] [address] [place] [address] Dr. Mariaelena Johnson LYMPH # 1.7 103/ul Normal 1.2-3.8 [facility] Comment on above: Performed By: #### C BC #### [facility] [address] [place] [address] Dr. Mariaelena Johnson Lymphocytes/100 WBC (Bld) 30.7 % Normal 20.5-60.0 [facility] Comment on above: Performed By: #### C BC #### [facility] [address] [place] [address] Dr. Mariaelena Johnson MANUAL DIFF REQ NO Normal [facility] Comment on above: Performed By: #### C BC #### [facility] [address] [place] [address] Dr. Mariaelena Johnson MCH (RBC) [Entitic mass] 27.7 pg Normal 25.9-34.0 [facility] Comment on above: Performed By: #### C BC #### [facility] [address] [address] [address] Mariaelena Johnson MCHC (RBC) [Mass/Vol] 32.1 g/dL Normal 29.9-35.2 [facility] Comment on above: Performed By: #### C BC #### [facility] [address] [place] [address] Dr. Mariaelena Johnson MCV (RBC) [Entitic vol] 86.3 fL Normal 80.0-94.0 [facility] Comment on above: Performed By: #### C BC #### [facility] [address] [place] [address] Dr. Mariaelena Johnson MONO # 0.6 103/ul Normal 0.3-0.8 [facility] Comment on above: Performed By: #### C BC #### [facility] [address] [place] [address] Dr. Mariaelena Johnson Monocytes/100 WBC (Bld) 11.1 % Normal 1.7-12.0 [facility] Comment on above: Performed By: #### C BC #### [facility] [address] [place] [address] Dr. Mariaelena Johnson NEUT # 2.9 103/ul Normal 1.4-6.5 [facility] Comment on above: Performed By: #### C BC #### [facility] [address] [place] [address] Dr. Mariaelena Johnson Neutrophils/100 WBC (Bld) 50.9 % Normal 43.0-75.0 [facility] Comment on above: Performed By: #### C BC #### [facility] [address] [place] [address] Dr. Mariaelena Johnson Platelet mean volume (Bld) [Entitic vol] 9.4 fL Critically low 9.5-13.5 [facility] Comment on above: Performed By: #### C BC #### [facility] [address] [place] [address] Dr. Mariaelena Johnson PLT 233 103/ul Normal 150-450 [facility] Comment on above: Performed By: #### C BC #### [facility] [address] [address] [address] Mariaelena Johnson RBC 4.80 106/ul Normal 4.70-6.10 [facility] Comment on above: Performed By: #### C BC #### [facility] [address] [address] [address] Mariaelena Johnson WBC 5.7 103/ul Normal 4.0-11.0 [facility] Comment on above: Performed By: #### C BC #### [facility] [address] [place] [address] Dr. Mariaelena Johnson GLYCOHEMOGLOBIN A1Con 2022 ADA RECOMMENDATION SEE BELOW Normal [facility] Comment on above: Result Comment: ADA RECOMMENDED LIMIT 4.0 - 6.0 ADA THERAPEUTIC TARGET < 7.0 ACTION SUGGESTED > 7.0 Performed By: #### A 1C #### [facility] [address] [place] [address] Dr. Mariaelena Johnson Glucose [Mass/Vol] 183 mg/dL Normal [facility] Comment on above: Performed By: #### A 1C #### [facility] [address] [place] [address] Dr. Mariaelena Johnson HbA1c (Bld) [Mass fraction] 8.0 % Critically high 4.5-6.2 [facility] Comment on above: Performed By: #### A 1C #### [facility] [address] [place] [address] Dr. Mariaelena Johnson LIPID PROFILEon 12-29-2022 CHOL-HDL RATIO NORM SEE BELOW Normal [facility] Comment on above: Result Comment: 3.3 - 4.4 LOW RISK 4.4 - 7.1 AVERAGE RISK 7.1 - 11.0 MODERATE RISK >11.0 HIGH RISK Performed By: #### B MP, LIPID, ALT #### [facility] [address] [place] [address] Dr. Mariaelena Johnson Cholesterol [Mass/Vol] 217 mg/dL Critically high <=200 [facility] Comment on above: Performed By: #### B MP, LIPID, ALT #### [facility] [address] [address] [address] Mariaelena Johnson Cholesterol in HDL [Mass/Vol] 51 mg/dL Normal 40-60 [facility] Comment on above: Performed By: #### B MP, LIPID, ALT #### [facility] [address] [address] [address] Mariaelena Johnson Cholesterol in LDL [Mass/Vol] 144.4 mg/dL Normal [facility] Comment on above: Performed By: #### B MP, LIPID, ALT #### [facility] [address] [place] [address] Dr. Mariaelena Johnson Cholesterol.total/C holesterol in HDL [Mass ratio] 4.3 {ratio} Normal [facility] Comment on above: Performed By: #### B MP, LIPID, ALT #### [facility] [address] [address] [address] Mariaelena Johnson HDL NORMAL > or = 60 mg/dl - LO W CARDIOVASCULAR RISK <40 mg/dl - HIGH CARDIOVASCULAR RISK Normal [facility] Comment on above: Performed By: #### B MP, LIPID, ALT #### [facility] [address] [place] [address] Dr. Mariaelena Johnson LDL CALC NORMAL SEE BELOW Normal [facility] Comment on above: Result Comment: <100 mg/dl OPTIMAL 100 - 129 mg/dl NEAR OR ABOVE OPTIMAL 130 - 159 mg/dl BORDERLINE HIGH 160 - 189 mg/dl HIGH >190 mg/dl VERY HIGH Performed By: #### B MP, LIPID, ALT #### [facility] [address] [address] [address] Mariaelena Johnson Triglyceride [Mass/Vol] 108 mg/dL Normal <=150 [facility] Comment on above: Performed By: #### B MP, LIPID, ALT #### [facility] [address] [place] [address] Dr. Mariaelena Johnson VLDL CALC 21.6 mg/dL Normal [facility] Comment on above: Performed By: #### B MP, LIPID, ALT #### [facility] [address] [address] [address] Mariaelena Johnson MICROALBUMIN, RAND URon 05-1 mALB 36.9 mg/L Critically high <=30.0 [facility] Comment on above: Performed By: #### M ALBR #### [facility] [address] [place] [address] Dr. Mariaelena Johnson PROF CHEM 8 (BAS METB)on Anion gap [Moles/Vol] 10.7 mmol/L Normal [facility] Comment on above: Performed By: #### B MP, LIPID, ALT #### [facility] [address] [place] [address] Dr. Mariaelena Johnson Calcium [Mass/Vol] 8.8 mg/dL Normal 8.5-10.[address] [facility] Comment on above: Performed By: #### B MP, LIPID, ALT #### [facility] [address] [place] [address] Dr. Mariaelena Johnson Chloride [Moles/Vol] 104 mmol/L Normal 98-107 [facility] Comment on above: Performed By: #### B MP, LIPID, ALT #### [facility] [address] [address] [address] Mariaelena Johnson CO2 [Moles/Vol] 26.2 mmol/L Normal 21.0-32.0 [facility] Comment on above: Performed By: #### B MP, LIPID, ALT #### [facility] [address] [place] [address] Dr. Mariaelena Johnson Creatinine [Mass/Vol] 1.17 mg/dL Normal 0.70-1.30 [facility] Comment on above: Performed By: #### B MP, LIPID, ALT #### [facility] [address] [place] [address] Dr. Mariaelena Johnson EGFR-AF ECUADOREAN >60 Normal >=60 [facility] Comment on above: Performed By: #### B MP, LIPID, ALT #### [facility] [address] [place] [address] Dr. Mariaelena Johnson EGFR-NON AF ECUADOREAN 59 mL/min/1.73m2 Critically low >=60 [facility] Comment on above: Performed By: #### B MP, LIPID, ALT #### [facility] [address] [address] [address] Mariaelena Johnson Glucose [Mass/Vol] 180 mg/dL Critically high 74-106 [facility] Comment on above: Performed By: #### B MP, LIPID, ALT #### [facility] [address] [address] [address] Mariaelena Johnson Potassium [Moles/Vol] 4.1 mmol/L Normal 3.5-5.1 [facility] Comment on above: Performed By: #### B MP, LIPID, ALT #### [facility] [address] [address] [address] Mariaelena Johnson Sodium [Moles/Vol] 139 mmol/L Normal 136-145 [facility] Comment on above: Performed By: #### B MP, LIPID, ALT #### [facility] [address] [address] [address] Mariaelena Johnson Urea nitrogen [Mass/Vol] 20.0 mg/dL Critically high 7.0-18.0 [facility] Comment on above: Performed By: #### B MP, LIPID, ALT #### [facility] [address] [address] [address] Mariaelena Johnson Urea nitrogen/Creatinine [Mass ratio] 17.1 mg/mg Normal [facility] Comment on above: Performed By: #### B MP, LIPID, ALT #### [facility] [address] [address] [address] Mariaelena Johnson [facility] 12-29-2022 ALT [Catalytic activity/Vol] 24 U/L Normal 16-63 [facility] Comment on above: Performed By: #### B MP, LIPID, ALT #### [facility] [address] [address] [address] Mariaelena Johnson GLYCOHEMOGLOBIN A1Con 2022 ADA RECOMMENDATION SEE BELOW Normal [facility] Comment on above: Result Comment: ADA RECOMMENDED LIMIT 4.0 - 6.0 ADA THERAPEUTIC TARGET < 7.0 ACTION SUGGESTED > 7.0 Performed By: #### A 1C #### [facility] [address] [place] [address] Dr. Mariaelena Johnson Glucose [Mass/Vol] 174 mg/dL Normal [facility] Comment on above: Performed By: #### A 1C #### [facility] [address] [address] [address] Mariaelena Johnson HbA1c (Bld) [Mass fraction] 7.7 % Critically high 4.5-6.2 [facility] Comment on above: Performed By: #### A 1C #### [facility] [address] [address] [address] Mariaelena Johnson GLYCOHEMOGLOBIN A1Con 2021 ADA RECOMMENDATION SEE BELOW Normal [facility] Comment on above: Result Comment: ADA RECOMMENDED LIMIT 4.0 - 6.0 ADA THERAPEUTIC TARGET < 7.0 ACTION SUGGESTED > 7.0 Performed By: #### A 1C #### [facility] [address] [place] [address] Dr. Mariaelena Johnson Glucose [Mass/Vol] 206 mg/dL Normal [facility] Comment on above: Performed By: #### A 1C #### [facility] [address] [place] [address] Dr. Mariaelena Johnson HbA1c (Bld) [Mass fraction] 8.8 % Critically high 4.5-6.2 [facility] Comment on above: Performed By: #### A 1C #### [facility] [address] [place] [address] Dr. Mariaelena Johnson GLYCOHEMOGLOBIN A1Con 2021 ADA RECOMMENDATION SEE BELOW Normal [facility] Comment on above: Result Comment: ADA RECOMMENDED LIMIT 4.0 - 6.0 ADA THERAPEUTIC TARGET < 7.0 ACTION SUGGESTED > 7.0 Performed By: #### A 1C #### [facility] [address] [address] [address] Mariaelena Johnson Glucose [Mass/Vol] 203 mg/dL Normal [facility] Comment on above: Performed By: #### A 1C #### [facility] [address] [place] [address] Dr. Mariaelena Johnson HbA1c (Bld) [Mass fraction] 8.7 % Critically high 4.5-6.2 [facility] Comment on above: Performed By: #### A 1C #### [facility] [address] [place] [address] Dr. Mariaelena Johnson Vital Signs Date Time Vital Sign Value Performing Clinician Facility 09-25-2024 08:38-0500 Body height 172.72 cm [facility] 09-25-2024 08:38-0500 Body mass index (BMI) [Ratio] 33.5 kg/m2 [facility] 09-25-2024 08:38-0500 Body weight 99.9 kg [facility] 09-25-2024 08:38-0500 Diastolic blood pressure 67 mm[Hg] [facility] 09-25-2024 08:38-0500 Heart rate 73 /min [facility] 09-25-2024 08:38-0500 Respiratory rate 12 /min [facility] 09-25-2024 08:38-0500 Systolic blood pressure 171 mm[Hg] [facility] 05-22-2024 08:48-0400 Body height 172.72 cm [facility] 05-22-2024 08:48-0400 Body mass index (BMI) [Ratio] 33.4 kg/m2 [facility] 05-22-2024 08:48-0400 Body weight 99.79 kg [facility] 05-22-2024 08:48-0400 Diastolic blood pressure 77 mm[Hg] [facility] 05-22-2024 08:48-0400 Heart rate 73 /min [facility] 05-22-2024 08:48-0400 Respiratory rate 12 /min [facility] 05-22-2024 08:48-0400 Systolic blood pressure 146 mm[Hg] [facility] 01-10-2024 09:39-0400 Body height 172.72 cm [facility] 01-10-2024 09:39-0400 Body mass index (BMI) [Ratio] 34.1 kg/m2 [facility] 01-10-2024 09:39-0400 Body weight 101.77 kg [facility] 01-10-2024 09:39-0400 Diastolic blood pressure 79 mm[Hg] [facility] 01-10-2024 09:39-0400 Heart rate 77 /min [facility] 01-10-2024 09:39-0400 Respiratory rate 16 /min [facility] 01-10-2024 09:39-0400 Systolic blood pressure 150 mm[Hg] [facility] 11-28-2023 11:53-0400 Diastolic blood pressure 80 mm[Hg] ASHLIE LISA [facility] 11-28-2023 11:53-0400 Mean blood pressure 100 mm[Hg] ASHLIE LISA [facility] 11-28-2023 11:53-0400 Systolic blood pressure 140 mm[Hg] ASHLIE LISA [facility] 11-28-2023 11:48-0400 Blood Pressure Location ASHLIE LISA [facility] 11-28-2023 11:48-0400 Body temperature 98.06 [degF] ASHLIE LISA [facility] 11-28-2023 11:48-0400 Diastolic blood pressure 84 mm[Hg] ASHLIE LISA [facility] 11-28-2023 11:48-0400 Heart rate 74 /min ASHLIE LISA [facility] 11-28-2023 11:48-0400 Respiratory rate 16 /min ASHLIE LISA [facility] 11-28-2023 11:48-0400 Systolic blood pressure 158 mm[Hg] ASHLIE LISA [facility] 10-11-2023 09:01-0500 Body height 172.72 cm [facility] 10-11-2023 09:01-0500 Body mass index (BMI) [Ratio] 34.7 kg/m2 [facility] 10-11-2023 09:01-0500 Body weight 103.47 kg [facility] 10-11-2023 09:01-0500 Diastolic blood pressure 79 mm[Hg] [facility] 10-11-2023 09:01-0500 Heart rate 76 /min [facility] 10-11-2023 09:01-0500 Respiratory rate 12 /min [facility] 10-11-2023 09:01-0500 Systolic blood pressure 163 mm[Hg] [facility] 06-27-2023 09:07-0500 Body height 172.72 cm Glenn Ball Other [facility] [employer] Other 06-27-2023 09:07-0500 Diastolic blood pressure 72 mm[Hg] Glenn Ball Other [facility] [employer] Other 06-27-2023 09:07-0500 Systolic blood pressure 150 mm[Hg] Glenn Ball Other [facility] [employer] Other 06-23-2023 09:00-0400 Body height 172.72 cm Glenn Ball Other [facility] [employer] Other 06-23-2023 09:00-0400 Body mass index (BMI) [Ratio] 34.27 kg/m2 Glenn Ball Other [employer] [facility] [employer] Other 06-23-2023 09:00-0400 Body weight 102.24 kg Glenn Ball Other [facility] [employer] Other 06-23-2023 09:00-0400 Diastolic blood pressure 83 mm[Hg] Glenn Ball Other [employer] Other 06-23-2023 09:00-0400 Respiratory rate 16 /min Glenn Ball Other [facility] Other 06-23-2023 09:00-0400 Systolic blood pressure 178 mm[Hg] Glenn Ball Other [facility] Other 03-30-2023 08:30-0400 Body height 172.72 cm Glenn Ball Other [facility] Other 03-30-2023 08:30-0400 Body mass index (BMI) [Ratio] 34.97 kg/m2 Glenn Ball Other [facility] Other 03-30-2023 08:30-0400 Body weight 104.33 kg Glenn Ball Other [facility] Other 03-30-2023 08:30-0400 Diastolic blood pressure 78 mm[Hg] Glenn Ball Other [facility] Other 03-30-2023 08:30-0400 Systolic blood pressure 150 mm[Hg] Glenn Ball Other [facility] Other 12-28-2022 09:30-0400 Body height 172.72 cm Glenn Ball Other [facility] Other 12-28-2022 09:30-0400 Body mass index (BMI) [Ratio] 35.09 kg/m2 Glenn Ball Other [facility] Other 12-28-2022 09:30-0400 Body weight 104.69 kg Glenn Ball Other [facility] Other 12-28-2022 09:30-0400 Diastolic blood pressure 78 mm[Hg] Glenn Ball Other [facility] [employer] Other 12-28-2022 09:30-0400 Respiratory rate 16 /min Glenn Ball Other [facility] [employer] Other 12-28-2022 09:30-0400 Systolic blood pressure 171 mm[Hg] Glenn Ball Other [employer] [facility] [employer] Other 11-01-2022 14:19-0400 Blood Pressure Location ASHLIE GONZALEZ [facility] 11-01-2022 14:19-0400 Diastolic blood pressure 80 mm[Hg] ASHLIE GONZALEZ [facility] 11-01-2022 14:19-0400 Systolic blood pressure 130 mm[Hg] ASHLIE GONZALEZ [facility] 10-21-2022 10:10-0500 Blood Pressure Location Rusty NICHOLS [facility] 10-21-2022 10:10-0500 Diastolic blood pressure 73 mm[Hg] Rusty NICHOLS [facility] 10-21-2022 10:10-0500 Heart rate 90 /min Rusty NICHOLS [facility] 10-21-2022 10:10-0500 Systolic blood pressure 115 mm[Hg] Rusty NICHOLS [facility] 09-30-2022 09:30-0500 Body height 172.72 cm Glenn Boswell Other [employer] [facility] [employer] Other 09-30-2022 09:30-0500 Body mass index (BMI) [Ratio] 34.06 kg/m2 Glenn Ball Other [facility] Other 09-30-2022 09:30-0500 Body weight 101.61 kg Glenn Ball Other [facility] Other 09-30-2022 09:30-0500 Diastolic blood pressure 76 mm[Hg] Glenn Boswell Other [facility] Other 09-30-2022 09:30-0500 Respiratory rate 12 /min Glenn Boswell Other [facility] Other 09-30-2022 09:30-0500 Systolic blood pressure 118 mm[Hg] Glenn Boswell Other [employer] Other Encounters Encounter Date Encounter Type Care Provider Facility Start: 09-25-2024 End: 09-25-2024 ambulatory [facility] Work Phone: Start: 09-25-2024 End: 09-25-2024 Patient encounter procedure [facility] Work Phone: Start: 07-30-2024 End: 07-30-2024 Patient encounter procedure [facility] Work Phone: Start: 05-22-2024 End: 05-22-2024 ambulatory [facility] Work Phone: Start: 05-22-2024 End: 05-22-2024 Patient encounter procedure [facility] Work Phone: Start: 01-10-2024 End: 01-10-2024 ambulatory [facility] Work Phone: Start: 01-10-2024 End: 01-10-2024 Patient encounter procedure [facility] Work Phone: Start: 11-28-2023 End: 11-29-2023 ambulatory ASHLIE GONZALEZ Facility:[facility] [place] Start: 11-28-2023 End: 11-28-2023 Patient encounter procedure ASHLIE GONZALEZ [facility] Start: 11-24-2023 Non-patient / Non-visit [facility] Work Phone: Start: 11-20-2023 Non-patient / Non-visit [facility] [employer] Work Phone: Start: 10-11-2023 End: 10-11-2023 ambulatory [facility] Work Phone: Start: 10-11-2023 End: 10-11-2023 Patient encounter procedure [facility] Work Phone: Start: 09-27-2023 End: 09-27-2023 ambulatory Glenn Ball Other [facility] Other Start: 09-27-2023 Telephone encounter Glenn Ball [facility] Start: 09-25-2023 End: 09-25-2023 ambulatory Glenn Ball Other [facility] Other Start: 09-25-2023 Telephone encounter Glenn Ball [facility] Start: 08-30-2023 End: 08-30-2023 ambulatory Glenn Ball Other [facility] Other Start: 08-30-2023 Telephone encounter Glenn Ball [facility] Start: 07-06-2023 End: 07-06-2023 ambulatory Glenn Ball Other [facility] Other Start: 07-06-2023 Telephone encounter Glenn Ball [facility] Start: 07-05-2023 End: 07-05-2023 ambulatory Glenn Ball Other [facility] Other Start: 07-05-2023 Telephone encounter Glenn Ball [facility] Start: 06-27-2023 End: 06-27-2023 ambulatory Glenn Boswell Other [facility] Other Start: 06-27-2023 Telephone encounter Glenn DONATO [facility] Start: 06-23-2023 End: 06-23-2023 ambulatory Glenn Boswell Other [facility] Other Start: 06-23-2023 Office outpatient vi sit 25 minutes Glenn Ball [facility] Start: 03-30-2023 End: 03-30-2023 ambulatory Glenn Boswell Other [facility] Other Start: 03-30-2023 Office outpatient vi sit 25 minutes Glenn Boswell [facility] Start: 02-16-2023 End: 02-16-2023 ambulatory Glenn Boswell Other [facility] Other Start: 02-16-2023 Telephone encounter Glenn DONATO [facility] Start: 02-07-2023 End: 02-07-2023 ambulatory Glenn Boswell Other [facility] Other Start: 02-07-2023 Telephone encounter Glenn DONATO [facility] Start: 12-29-2022 Telephone encounter Glenn DONATO [facility] Start: 12-29-2022 End: 12-30-[address] GLENN BOSWELL [facility] [employer] Other Start: 12-28-2022 End: 12-28-2022 ambulatory Glenn Boswell Other [facility] Other Start: 12-28-2022 Office outpatient vi sit 25 minutes Glenn Ball [facility] Start: 11-01-2022 End: 11-01-2022 Patient encounter procedure ASHLIE GONZALEZ [facility] Start: 10-24-2022 End: 10-24-2022 Patient encounter procedure Rusty R AIMEE [facility] Start: 10-21-2022 End: 10-21-2022 Patient encounter procedure Rusty R AIMEE [facility] Start: 10-03-2022 End: 10-03-2022 ambulatory Glenn Boswell Other [facility] Other Start: 10-03-2022 Tele[facility] encounter [facility] Start: 10-02-2022 End: 10-02-2022 ambulatory Glenn Boswell Other [facility] Other Start: 10-02-2022 Telephone encounter [facility] Start: 09-30-2022 End: 09-30-2022 ambulatory Glenn Boswell Other [facility] Other Start: 09-30-2022 Patient encounter procedure [facility] Start: 08-30-2022 End: 08-30-2022 ambulatory Glenn Boswell Other [facility] Other Start: 08-30-2022 Telephone encounter [facility] Start: 08-22-2022 End: 08-23-[address] GLENN BOSWELL Facility:[facility] Start: 05-19-2022 End: 05-20-[address] GLENN BOSWELL Facility:[facility] Start: 01-28-2022 End: 01-29-[address] GLENN BOSWELL Facility:[facility] Start: 09-22-2021 Adult health examination Glenn Boswell Other [facility] Other Procedures Date Procedure Procedure Detail Performing Clinician Cataract (disorder) Rusty NICHOLS Comment on above: B/L Depression screening Maribell Boswell Other History of repair of umbilical hernia Rusty NICHOLS History of tonsillectomy Viry NICHOLS Plan of Treatment Date Care Activity Detail Author Comprehensive metabo lic 1999 panel - Serum or Plasma [facility] enter Comprehensive metabo lic 1999 panel - Serum or Plasma [facility] enter Microalbumin [Mass/volume] in Urine [facility] Immunizations Immunization Date Immunization Notes Care Provider Fa cility 07-30-2024 influenza, high dose seasonal, preservative-free [facility] 06-23-2023 influenza virus vaccine, unspecified formulation [facility] 06-23-2023 influenza, high dose seasonal, preservative-free Glenn Boswell Other [facility] [employer] [facility] Other 08-18-2022 SARS-CoV-2 (COVID-19 ) [id number] ASHLIE GONZALEZ [facility] 08-08-2022 influenza virus vaccine, split virus (incl. purified surface antigen) Glenn Boswell Other [facility] [employer] Other 08-08-2022 influenza virus vaccine, unspecified formulation [facility] 08-08-2022 influenza, high dose seasonal, preservative-free Glenn Boswell Other [facility] [employer] Other 06-01-2021 influenza virus vaccine, split virus (incl. purified surface antigen) Glenn Boswell Other [facility] [employer] Other 06-01-2021 influenza virus vaccine, unspecified formulation [facility] 05-27-2021 influenza virus vaccine, unspecified formulation Rusty NICHOLS [facility] 10-29-2020 SARS-CoV-2 (COVID-19 ) Ad26 vaccine, recombinant Rusty NICHOLS [facility] 10-27-2020 COVID-19 Vaccine Moderna - Documentation Purposes Only Glenn Boswell Other [facility] 09-30-2020 SARS-CoV-2 (COVID-19 ) Ad26 vaccine, recombinant Rusty NICHOLS [facility] 09-28-2020 COVID-19 Vaccine Moderna - Documentation Purposes Only Glenn Boswell Other [facility] 06-01-2020 influenza virus vaccine, unspecified formulation Rusty NICHOLS [facility] 05-11-2020 influenza virus vaccine, split virus (incl. purified surface antigen) Glenn Boswell Other [facility] Other 05-11-2020 influenza virus vaccine, unspecified formulation [facility] 06-24-2019 influenza virus vaccine, split virus (incl. purified surface antigen) Glenn Boswell Other [facility] Other 06-24-2019 influenza virus vaccine, unspecified formulation [facility] 02-22-2019 influenza virus vaccine, unspecified formulation Rusty NICHOLS [facility] 06-15-2018 influenza virus vaccine, split virus (incl. purified surface antigen) Glenn Boswell Other [facility] Other 06-15-2018 influenza virus vaccine, unspecified formulation [facility] 05-11-2016 influenza virus vaccine, split virus (incl. purified surface antigen) Glenn Boswell Other [facility] Other 05-11-2016 influenza virus vaccine, unspecified formulation [facility] 08-25-2015 pneumococcal conjuga te vaccine, 13 valent Glenn Boswell Other [facility] 05-01-2014 influenza virus vaccine, split virus (incl. purified surface antigen) Glenn Boswell Other [facility] Other 05-01-2014 influenza virus vaccine, unspecified formulation [facility] 05-01-2013 tetanus and diphther ia toxoids, adsorbed, preservative free, for adult use (5 Lf of tetanus toxoid and 2 Lf of diphtheria toxoid) Glenn Boswell Other [facility] 06-06-2012 tetanus and diphther ia toxoids, adsorbed, preservative free, for adult use (5 Lf of tetanus toxoid and 2 Lf of diphtheria toxoid) Glenn Boswell Other [facility] 06-27-2001 pneumococcal polysaccharide vaccine, 23 valent Glenn Boswell Other [facility] Payers Date Payer Category Payer [id number] 1959 Medicare [id number] 1935 Unknown [id number] 1935 Unknown [id number] 1935 Unknown [id number] 1935 Unknown [id number] 1935 Unknown [id number] Social History Date Type Detail Facility Sex Assigned At [facility] Start: 10-21-2022 End: 11-28-2023 Tobacco smoking status Ex-smoker (finding) [facility] Start: 10-07-2023 End: 10-07-2023 Tobacco smoking status NHIS Never smoked tobacco (finding) [facility] Start: 1935 Sex Assigned At Male [facility] Start: 09-25-2024 Sex Male (finding) [facility] Medical Equipment Procedure Code Equipment Code Equipment Origin al Text Equipment Identifier Dates Lancets - Start: 09-25-2023 Blood Sugar Diagnostic (Contour Next Test Strips) strip Start: 10-07-2023 Blood Sugar Diagnostic (True Metrix Glucose Test Strip) strip Start: 01-08-2024 Blood Sugar Diagnostic (Contour Next Test Strips) strip Start: 10-07-2023 End: 01-08-2024 Blood Sugar Diagnostic (True Metrix Glucose Test Strip) strip Start: 01-08-2024 Pen Needle, Diab etic (Comfort Ez Pen [place]) 31 gauge x 5/16 needle Start: 05-13-2024 Blood Sugar Diagnostic (Contour Next Test Strips) strip Start: 10-07-2023 End: 01-08-2024 Pen Needle, Diab etic (Comfort Ez Pen [place]) 32 gauge x 5/16 needle Start: 05-13-2024 End: 05-13-2024 Blood Sugar Diagnostic (True Metrix Glucose Test Strip) strip Start: 01-08-2024 Pen Needle, Diab etic (Comfort Ez Pen [place]) 31 gauge x 5/16 needle Start: 05-13-2024 Pen Needle, Diab etic 31 gauge x 5/16 needle Start: 05-13-2024 Blood Sugar Diagnostic (Contour Next Test Strips) strip Start: 10-07-2023 End: 01-08-2024 Pen Needle, Diab etic (Comfort Ez Pen [place]) 32 gauge x 5/16 needle Start: 05-13-2024 End: 05-13-2024 Functional Status Date Assessment Result Facility 11-28-2023 Functional Status N/A [facility] 11-01-2022 Functional Status N/A [facility] 10-21-2022 Functional Status N/A [facility] Clinical Notes 08-30-2022 to 11-28-2023 Note Date & Type Note Facility 11-28-2023 Note - From: Delores Mendoza To: [facility] - Administrative; Sent: 11/28/2023 12:16:06 EDT Show up: 08/30/2024 12:15:00 EST Subject: Ambulatory Reminder Due Date/Time: 11/19/2024 12:15:00 EDT Reminder/Recall Patient needs scheduled for a 1 yr follow up with PSA, due in early November of 2024. Patient was rescheduled 3x for 11/28/23 appointment and would like to schedule closer to the time of the appointment rather than being rescheduled so many times. [facility] 11-28-2023 Hospital Discharge instructions Patient Education 11/28/2023 12:14:43 Benign Prostatic Hyperplasia Benign Prostatic Hyperplasia Benign prostatic hyperplasia (BPH) is an enlarged prostate gland that is caused by the normal aging process. The prostate may get bigger as a man gets older. The condition is not caused by cancer. The prostate is a walnut-sized gland that is involved in the production of semen. It is located in front of the rectum and below the bladder. The bladder stores urine. The urethra carries stored urine out of the body. An enlarged prostate can press on the urethra. This can make it harder to pass urine. The buildup of urine in the bladder can cause infection. Back pressure and infection may progress to bladder damage and kidney (renal) failure. What are the causes? This condition is part of the normal aging process. However, not all men develop problems from this condition. If the prostate enlarges away from the urethra, urine flow will not be blocked. If it enlarges toward the urethra and compresses it, there will be problems passing urine. What increases the risk? This condition is more likely to develop in men older than 50 years. What are the signs or symptoms? Symptoms of this condition include: Getting up often during the night to urinate. Needing to urinate frequently during the day. Difficulty starting urine flow. Decrease in size and strength of your urine stream. Leaking (dribbling) after urinating. Inability to pass urine. This needs immediate treatment. Inability to completely empty your bladder. Pain when you pass urine. This is more common if there is also an infection. Urinary tract infection (UTI). How is this diagnosed? This condition is diagnosed based on your medical history, a physical exam, and your symptoms. Tests will also be done, such as: A post-void bladder scan. This measures any amount of urine that may remain in your bladder after you finish urinating. A digital rectal exam. In a rectal exam, your health care provider checks your prostate by putting a lubricated, gloved finger into your rectum to feel the back of your prostate gland. This exam detects the size of your gland and any abnormal lumps or growths. An exam of your urine (urinalysis). A prostate specific antigen (PSA) screening. This is a blood test used to screen for prostate cancer. An ultrasound. This test uses sound waves to electronically produce a picture of your prostate gland. Your health care provider may refer you to a specialist in kidney and prostate diseases (urologist). How is this treated? Once symptoms begin, your health care provider will monitor your condition (active surveillance or watchful waiting). Treatment for this condition will depend on the severity of your condition. Treatment may include: Observation and yearly exams. This may be the only treatment needed if your condition and symptoms are mild. Medicines to relieve your symptoms, including: ?Medicines to shrink the prostate. ?Medicines to relax the muscle of the prostate. Surgery in severe cases. Surgery may include: ?Prostatectomy. In this procedure, the prostate tissue is removed completely through an open incision or with a laparoscope or robotics. ?Transurethral resection of the prostate (TURP). In this procedure, a tool is inserted through the opening at the tip of the penis (urethra). It is used to cut away tissue of the inner core of the prostate. The pieces are removed through the same opening of the penis. This removes the blockage. ?Transurethral incision (TUIP). In this procedure, small cuts are made in the prostate. This lessens the prostate's pressure on the urethra. ?Transurethral microwave thermotherapy (TUMT). This procedure uses microwaves to create heat. The heat destroys and removes a small amount of prostate tissue. ?Transurethral needle ablation (TUNA). This procedure uses radio frequencies to destroy and remove a small amount of prostate tissue. ?Interstitial laser coagulation (ILC). This procedure uses a laser to destroy and remove a small amount of prostate tissue. ?Transurethral electrovaporization (TUVP). This procedure uses electrodes to destroy and remove a small amount of prostate tissue. ?Prostatic urethral lift. This procedure inserts an implant to push the lobes of the prostate away from the urethra. Follow these instructions at home: Take sibx-glx-wyjkzpn and prescription medicines only as told by your health care provider. Monitor your symptoms for any changes. Contact your health care provider with any changes. Avoid drinking large amounts of liquid before going to bed or out in public. Avoid or reduce how much caffeine or alcohol you drink. Give yourself time when you urinate. Keep all follow-up visits. This is important. Contact a health care provider if: You have unexplained back pain. Your symptoms do not get better with treatment. You develop side effects from the medicine you are taking. Your urine becomes very dark or has a bad smell. Your lower abdomen becomes distended and you have trouble passing urine. Get help right away if: You have a fever or chills. You suddenly cannot urinate. You feel light-headed or very dizzy, or you faint. There are large amounts of blood or clots in your urine. Your urinary problems become hard to manage. You develop moderate to severe low back or flank pain. The flank is the side of your body between the ribs and the hip. These symptoms may be an emergency. Get help right away. Call 911. Do not wait to see if the symptoms will go away. Do not drive yourself to the hospital. Summary Benign prostatic hyperplasia (BPH) is an enlarged prostate that is caused by the normal aging process. It is not caused by cancer. An enlarged prostate can press on the urethra. This can make it hard to pass urine. This condition is more likely to develop in men older than 50 years. Get help right away if you suddenly cannot urinate. This information is not intended to replace advice given to you by your health care provider. Make sure you discuss any questions you have with your health care provider. Document Revised: 02/23/2022 Document Reviewed: 02/23/2022 [facility] Patient Education 2022 [employer]. Follow Up Care 10/21/2022 11:07:01 With:ASHLIE GONZALEZ PA-C, URL Address: [address] [address] [phone] When: Unknown Comments:1 yr w/ PSA (and new med) [facility] 11-28-2023 Evaluation + Plan note Diagnostic Tests PendingPSA Free & Total 11/28/23 [facility] 09-27-2023 Evaluation note Encounter Date Diagnosis Assessment Notes Sep, Type 2 diabetes mellitus with diabetic polyneuropathy (ICD-10 - E11.42) [facility] Other 02-05-2024 Evaluation note* Encounter Date Diagnosis Assessment Notes Treatment Notes Treatment Clinical Notes Sep, Type 2 diabetes mellitus with diabetic polyneuropathy (ICD-10 - E11.42) [facility] Other 02-05-2024 Evaluation note* Encounter Date Diagnosis Assessment Notes Treatment Notes Treatment Clinical Notes Sep, Type 2 diabetes mellitus with hyperglycemia (ICD-10 - E11.65) [facility] Other 01-10-2024 Evaluation note* Encounter Date Diagnosis Assessment Notes Treatment Notes Treatment Clinical Notes Aug, Type 2 diabetes mellitus with hyperglycemia (ICD-10 - E11.65) [facility] Other 11-16-2023 Evaluation note* Encounter Date Diagnosis Assessment Notes Treatment Notes Treatment Clinical Notes Jun, Type 2 diabetes mellitus with diabetic polyneuropathy (ICD-10 - E11.42) [facility] Other 11-15-2023 Evaluation note* Encounter Date Diagnosis Assessment Notes Treatment Notes Treatment Clinical Notes Jun, Type 2 diabetes mellitus with hyperglycemia (ICD-10 - E11.65) Jun, Primary hypertension (ICD-10 - I10) [facility] Other 11-07-2023 Evaluation note* Encounter Date Diagnosis Assessment Notes Treatment Notes Treatment Clinical Notes Jun, Primary hypertension (ICD-10 - I10) [facility] Other 11-03-2023 Evaluation note* Encounter Date Diagnosis Assessment Notes Treatment Notes Treatment Clinical Notes Jun, Type 2 diabetes mellitus with hyperglycemia (ICD-10 - E11.65) This patient is following a comprehensive diabetic treatment plan. They are checking their feet daily for calluses and nonhealing ulcers. They are being seen for yearly dilated eye examinations. Goals: SBP less than 130, LDL less than 100, FBS less than 140, A1C less than 7%. They are checking their BS daily, will which are reviewed at the office visit. Continue regular routine monitoring of A1C,] Microalbumin, Dilated eye exam and Foot exam A1C decreased from 8 to 7.5% - no change in treatment Jun, Type 2 diabetes mellitus with diabetic polyneuropathy (ICD-10 - E11.42) Inspect feet daily for cuts and calluses.Recommend diabetic shoes and inserts to prevent callus formation.Fall precautions. Jun, Primary hypertension (ICD-10 - I10) This patient is instructed to consume a healthy, low-fat, low-salt diet. They are also encouraged to continue exercise to achieve/maintain a normal BMI. Elevated BP today but admits to missing last couple days Patient is instructed on home BP measurements: - rest for 5 minutes w/o talking- positioned w/ feet on floor and arm supported- average best 2/3 readings w/ goal < 135/85 Jun, Hyperlipemia, mixed (ICD-10 - E78.2) Instructed on diet and exercise with continued statin therapy.Discussed the beneficial effects of lowering cholesterol in reducing the risk for cerebrovascular and cardiovascular disease. Jun, Other obesity due to excess calories (ICD-10 - E66.09) This patient has been instructed on a low-fat, high-fiber diet. They are instructed to reduce calories, portion sizes and snacks. It is recommended that they exercise for 30 minutes, 3-5 times weekly. 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 They are checking their feet daily for calluses and nonhealing ulcers. They are being seen for yearly dilated eye examinations. Goals: SBP less than 130, LDL less than 100, FBS less than 140, AC and A1C less than 7%. They are checking their BS daily, will which are reviewed at the office visit. Continue regular routine monitoring of A1C,] Microalbumin, Dilated eye exam and Foot exam Mar, Type 2 diabetes mellitus with diabetic polyneuropathy (ICD-10 - E11.42) Inspect feet daily for cuts and calluses.Recommend diabetic shoes and inserts to prevent callus formation.Fall precautions. Mar, Primary hypertension (ICD-10 - I10) This patient is instructed to consume a healthy, low-fat, low-salt diet. They are also encouraged to continue exercise to achieve/maintain a normal BMI. Patient is instructed on home BP measurements: - rest for 5 minutes w/o talking- positioned w/ feet on floor and arm supported- average best 2/3 readings w/ goal < 135-85 Mar, Hyperlipemia, mixed (ICD-10 - E78.2) Instructed on diet and exercise with continued statin therapy.Discussed the beneficial effects of lowering cholesterol in reducing the risk for cerebrovascular and cardiovascular disease. Mar, Other obesity due to excess calories (ICD-10 - E66.09) This patient has been instructed on a low-fat, high-fiber diet. They are instructed to reduce calories, portion sizes and snacks. It is recommended that they exercise for 30 minutes, 3-5 times weekly. Mar, Benign prostatic hyperplasia with lower urinary tract symptoms (ICD-10 - N40.1) Symptoms tolerable - nocturia x 2 - hesitancy and dribbling Continue Flomax Mar, Nocturia (ICD-10 - R35.1) Mar, Body mass index [BMI] 34.0-34.9, adult (ICD-10 - Z68.34) Mar, halfway (current) use of insulin (ICD-10 - Z79.4) [facility] Other 06-29-2023 Evaluation note* Encounter Date Diagnosis Assessment Notes Treatment Notes Treatment Clinical Notes Jan, Hyperlipemia, mixed (ICD-10 - E78.2) [facility] Other 05-11-2023 Evaluation note* Encounter Date Diagnosis Assessment Notes Treatment Notes Treatment Clinical Notes December, Elevated cholesterol (ICD-10 - E78.00) [facility] Other 05-10-2023 Evaluation note* Encounter Date Diagnosis Assessment Notes Treatment Notes Treatment Clinical Notes December, Type 2 diabetes mellitus with hyperglycemia (ICD-10 - E11.65) This patient is following a comprehensive diabetic treatment plan. They are checking their feet daily for calluses and nonhealing ulcers. They are being seen for yearly dilated eye examinations. Goals: SBP less than 130, LDL less than 100, FBS less than 140, AC and A1C less than 7%. They are checking their BS daily, will which are reviewed at the office visit. A1C: [ ] Microalbumin: [ ] Eye exam: [ ] Foot exam: [ ] December, Primary hypertension (ICD-10 - I10) This patient is instructed to consume a healthy, low-fat, low-salt diet. They are also encouraged to continue exercise to achieve/maintain a normal BMI. December, Type 2 diabetes mellitus with diabetic polyneuropathy (ICD-10 - E11.42) Inspect feet daily for cuts and calluses.Recommend diabetic shoes and inserts to prevent callus formation.Fall precautions. December, Hyperlipemia, mixed (ICD-10 - E78.2) Instructed on diet and exercise with continued statin therapy.Discussed the beneficial effects of lowering cholesterol in reducing the risk for cerebrovascular and cardiovascular disease. 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 F/U w/ Urology. 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 The function of the prostate (prostate gland) is to add fluid to semen during ejaculation. Prostate cancer is the second most common type of cancer in men. A screening test for cancer is a test that is done before cancer symptoms start. Screening can helpto identify cancer at an early stage, when the cancer can be treated more easily. The recommended prostate cancer screening test is a blood test called the prostate-specific antigen (PSA) test. PSA is a protein that is made in the prostate. As you age, your prostate naturally produces more PSA. Abnormally high PSA levels may be caused by: Prostate cancer. An enlarged prostate that is not caused by cancer (benign prostatic hyperplasia, BPH). This condition is very common in older men. A prostate gland infection (prostatitis). Medicines to assist with hair growth, such as finasteride. Depending on the PSA results, you may need more tests, such as: A physical exam to check the size of your prostate gland. Blood and imaging tests. A procedure to remove tissue samples from your prostate gland for testing (biopsy). Who should have screening? Screening recommendations vary based on age. If you are younger than age 40, screening is not recommended. If you are age 40 54 and you have no risk factors, screening is not recommended. If you are younger than age 55, ask your health care provider if you need screening if you have oneof these risk factors: ?Being of -[place] descent. ?Having a family history of prostate cancer. If you are age 55 69, talk with your health care provider about your need for screening and how often screening should be done. If you are older than age 70, screening is not recommended. This is because the risks that screening can cause are greater than the benefits that it may provide (risks outweigh the benefits). If you are at high risk for prostate cancer, your health care provider may recommend that you have screenings more often or start screening at a younger age. You may be at high risk if you: Are older than age 55. Are -[place]. Have a father, brother, or uncle who has been diagnosed with prostate cancer. The risk may be higher if your family member's cancer occurred at an early age. What are the benefits of screening? There is a small chance that screening may lower your risk of dying from prostate cancer. The chance is small because prostate cancer is typically a slow-growing cancer, and most men with prostate cancer from a different cause. What are the risks of screening? The main risk of prostate cancer screening is diagnosing and treating prostate cancer that would never have caused any symptoms or problems (overdiagnosis and overtreatment). PSA screening cannot tell you if your PSA is high due to cancer or a different cause. A prostate biopsy is the only procedure to diagnose prostate cancer. Even the results of a biopsy may not tell you if your cancer needs jaylen treated. Slow-growing prostate cancer may not need any treatment other than monitoring, so diagnosing and treating it may cause unnecessary stress or other side effects. A prostate biopsy may also cause: Infection or fever. A false negative. This is a result that shows that you do not have prostate cancer when you actually do have prostate cancer. Questions to ask your health care provider When should I start prostate cancer screening? What is my risk for prostate cancer? How often do I need screening? What type of screening tests do I need? How do I get my test results? What do my results mean? Do I need treatment? Contact a health care provider if: You have difficulty urinating. You have pain when you urinate or ejaculate. You have blood in your urine or semen. You have pain in your back or in the area of your prostate. You have trouble getting or maintaining an erection (erectile dysfunction, ED). Summary Prostate cancer is a common type of cancer in men. The prostate (prostate gland) is located below the bladder and in front of the rectum. This gland adds fluid to semen during ejaculation. Prostate cancer screening may identify cancer at an early stage, when the cancer can be treated more easily. The prostate-specific antigen (PSA) test is the recommended screening test for prostate cancer. Discuss the risks and benefits of prostate cancer screening with your health care provider. If you are age 70 or older, screening is likely to lead to more risks than benefits (risks outweigh the benefits). This information is not intended to replace advice given to you by your health care provider. Make sure you discuss any questions you have with your health care provider. Document Released: 05/18/2018 Document Revised: 07/20/2018 Document Reviewed: 05/18/2018 [employer] Patient Education 2020 [employer]. Follow Up Care 10/28/2022 13:49:17 With:AIMEE VERNON, Rusty Dominguez, URL Address: [address] [place], [place] [id number]- When: Unknown [facility] Khadra 03-03-2023 Hospital Discharge instructions Patient Education 10/21/2022 10:55:01 Benign Prostatic Hyperplasia Benign Prostatic Hyperplasia Benign prostatic hyperplasia (BPH) is an enlarged prostate gland that is caused by the normal agingprocess and not by cancer. The prostate is a walnut-sized gland that is involved in the production of semen. It is located in front of the rectum and below the bladder. The bladder stores urine and the urethra is the tube that carries the urine out of the body. The prostate may get bigger as a man gets older. An enlarged prostate can press on the urethra. This can make it harder to pass urine. The build-up of urine in the bladder can cause infection. Back pressure and infection may progress to bladder damage and kidney (renal) failure. What are the causes? This condition is part of a normal aging process. However, not all men develop problems from this condition. If the prostate enlarges away from the urethra, urine flow will not be blocked. If it enlarges toward the urethra and compresses it, there will be problems passing urine. What increases the risk? This condition is more likely to develop in men over the age of 50 years. What are the signs or symptoms? Symptoms of this condition include: Getting up often during the night to urinate. Needing to urinate frequently during the day. Difficulty starting urine flow. Decrease in size and strength of your urine stream. Leaking (dribbling) after urinating. Inability to pass urine. This needs immediate treatment. Inability to completely empty your bladder. Pain when you pass urine. This is more common if there is also an infection. Urinary tract infection (UTI). How is this diagnosed? This condition is diagnosed based on your medical history, a physical exam, and your symptoms. Tests will also be done, such as: A post-void bladder scan. This measures any amount of urine that may remain in your bladder after you finish urinating. A digital rectal exam. In a rectal exam, your health care provider checks your prostate by putting a lubricated, gloved finger into your rectum to feel the back of your prostate gland. This exam detects the size of your gland and any abnormal lumps or growths. An exam of your urine (urinalysis). A prostate specific antigen (PSA) screening. This is a blood test used to screen for prostate cancer. An ultrasound. This test uses sound waves to electronically produce a picture of your prostate gland. Your health care provider may refer you to a specialist in kidney and prostate diseases (urologist). How is this treated? Once symptoms begin, your health care provider will monitor your condition (active surveillance or watchful waiting). Treatment for this condition will depend on the severity of your condition. Treatment may include: Observation and yearly exams. This may be the only treatment needed if your condition and symptoms are mild. Medicines to relieve your symptoms, including: ?Medicines to shrink the prostate. ?Medicines to relax the muscle of the prostate. Surgery in severe cases. Surgery may include: ?Prostatectomy. In this procedure, the prostate tissue is removed completely through an open incision or with a laparoscope or robotics. ?Transurethral resection of the prostate (TURP). In this procedure, a tool is inserted through the opening at the tip of the penis (urethra). It is used to cut away tissue of the inner core of the prostate. The pieces are removed through the same opening of the penis. This removes the blockage. ?Transurethral incision (TUIP). In this procedure, small cuts are made in the prostate. This lessens the prostate's pressure on the urethra. ?Transurethral microwave thermotherapy (TUMT). This procedure uses microwaves to create heat. The heat destroys and removes a small amount of prostate tissue. ?Transurethral needle ablation (TUNA). This procedure uses radio frequencies to destroy and remove a small amount of prostate tissue. ?Interstitial laser coagulation (ILC). This procedure uses a laser to destroy and remove a small amount of prostate tissue. ?Transurethral electrovaporization (TUVP). This procedure uses electrodes to destroy and remove a small amount of prostate tissue. ?Prostatic urethral lift. This procedure inserts an implant to push the lobes of the prostate away from the urethra. Follow these instructions at home: Take wrhq-kop-mymtbpy and prescription medicines only as told by your health care provider. Monitor your symptoms for any changes. Contact your health care provider with any changes. Avoid drinking large amounts of liquid before going to bed or out in public. Avoid or reduce how much caffeine or alcohol you drink. Give yourself time when you urinate. Keep all follow-up visits as told by your health care provider. This is important. Contact a health care provider if: You have unexplained back pain. Your symptoms do not get better with treatment. You develop side effects from the medicine you are taking. Your urine becomes very dark or has a bad smell. Your lower abdomen becomes distended and you have trouble passing your urine. Get help right away if: You have a fever or chills. You suddenly cannot urinate. You feel lightheaded, or very dizzy, or you faint. There are large amounts of blood or clots in the urine. Your urinary problems become hard to manage. You develop moderate to severe low back or flank pain. The flank is the side of your body between the ribs and the hip. These symptoms may represent a serious problem that is an emergency. Do not wait to see if the symptoms will go away. Get medical help right away. Call your local emergency services (911 in the [place] Do not drive yourself to the hospital. Summary Benign prostatic hyperplasia (BPH) is an enlarged prostate that is caused by the normal aging process and not by cancer. An enlarged prostate can press on the urethra. This can make it hard to pass urine. This condition is part of a normal aging process and is more likely to develop in men over the age of 50 years. Get help right away if you suddenly cannot urinate. This information is not intended to replace advice given to you by your health care provider. Make sure you discuss any questions you have with your health care provider. Document Released: 08/07/2006 Document Revised: 07/02/2019 Document Reviewed: 09/11/2017 [employer] [facility] Patient Education 2020 [employer] Follow Up Care 10/20/2021 10:56:57 With:AIMEE VERNON, Rusty Dominguez, URL Address: [address] [place] [id number]- When: Unknown [facility] 02-13-2023 Evaluation note* Encounter Date Diagnosis Assessment Notes Treatment Notes Treatment Clinical Notes Sep, Type 2 diabetes mellitus with diabetic polyneuropathy (ICD-10 - E11.42) [facility] Other 02-12-2023 Evaluation note* Encounter Date Diagnosis Assessment Notes Treatment Notes Treatment Clinical Notes Sep, Essential hypertension (ICD-10 - I10) Sep, Hyperlipemia, mixed (ICD-10 - E78.2) Sep, Type 2 diabetes mellitus with hyperglycemia (ICD-10 - E11.65) Sep, High risk medication use (ICD-10 - Z79.899) Sep, 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 They are also encouraged to continue exercise to achieve/maintain a normal BMI. Sep, Hyperlipemia, mixed (ICD-10 - E78.2) Diet and exercise Sep, Type 2 diabetes mellitus with diabetic polyneuropathy (ICD-10 - E11.42) This patient is following a comprehensive diabetic treatment plan. They are checking their feet daily for calluses and nonhealing ulcers. They are being seen for yearly dilated eye examinations. Goals: SBP less than 130, LDL less than 100, FBS less than 140, AC and A1C less than 7%. They are checking their BS daily, will which are reviewed at the office visit. A1C: [ ] Microalbumin: [ ] Eye exam: [ ] Foot exam: [ ] Sep, halfway (current) use of insulin (ICD-10 - Z79.4) Sep, Type 2 diabetes mellitus with hyperglycemia (ICD-10 - E11.65) Inspect feet daily for cuts and calluses. Recommend diabetic shoes/inserts to prevent callus formation. Fall precautions Sep, Benign prostatic hyperplasia with lower urinary tract symptoms (ICD-10 - N40.1) Continue Flomax. Symptoms tolerable Sep, Medicare annual wellness visit, subsequent (ICD-10 - Z00.00) Personalized health advice was given to the beneficiary including a written plan for screenings discussed and provided. Advanced care planning reviewed and/or information given as requested. Additional counseling was provided here today in regards to, [ ]. The above visit was performed by [ ], under direct supervision of [ ]. Document reviewed and amended by provider signed below. Healthy diet and exercise. Reviewed age-appropriate preventive testing recommended. Sep, Obesity (BMI 30.0-34.9) (ICD-10 - E66.9) This patient has been instructed on a low-fat, high-fiber diet. They are instructed to reduce calories, portion sizes and snacks. It is recommended that they exercise for 30 minutes, 3-5 times weekly. [facility] Other 01-10-2023 Evaluation note* Encounter Date Diagnosis Assessment Notes Treatment Notes Treatment Clinical Notes Aug, Nocturia (ICD-10 - R35.1) Aug, Benign prostatic hyperplasia with lower urinary tract symptoms (ICD-10 - N40.1) [facility] Other Evaluation + Plan note Future Appointments Appointment Date:10/27/2023 08:00:00 AM Scheduled Provider:Rusty NICHOLS MD Location:[facility] Appointment Type:URO Office Visit [facility] evaluation + Plan note Future Appointments Appointment Date:10/27/2023 08:00:00 AM Scheduled Provider:Rusty NICHOLS MD Location:[facility] Appointment Type:URO Office Visit Diagnostic Tests Pending * PSA Free & Total 09/21/23 [facility] evalzrkify noteNo InformationNort [employer] Other evalujqpeg note* Diagnosis Onset Date Resolution Status Benign prostatic hyperplasia with lower urinary tract symptoms acute Chronic venous insufficiency of lower extremity 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 [id number] acute Nocturia acute Primary hypertension acute Type 2 diabetes mellitus wit h diabetic polyneuropathy acute Type 2 diabetes mellitus with hyperglycemia acute Medicare annual wellness visit, subsequent noneactive [facility] Work Phone: Evaluation note* Diagnosis Onset Date Resolution Status Benign prostatic hyperplasia with lower urinary tract symptoms acute Chronic venous insufficiency of lower extremity 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 [id number] acute Primary hypertension acute Type 2 diabetes mellitus with diabetic polyneuropathy acute Type 2 diabetes mellitus with hyperglycemia acute [facility] Work Phone: Evaluation note* Diagnosis Onset Date Resolution Status Benign prostatic hyperplasia with lower urinary tract symptoms acute Chronic venous insufficiency of lower extremity acute [id number] acute Primary hypertension acute Type 2 diabetes mellitus with diabetic polyneuropathy acute Type 2 diabetes mellitus with hyperglycemia acute [facility] Work Phone: Evaluation note* Diagnosis Onset Date Resolution Status Admit Date Chronic venous insufficiency of lower extremity acute September 25 8:30am Hypercholesterolemia acute 2024 8:30am Obesity acute September 25, 2024 8:30am Primary hypertension acute 2024 8:30am Type 2 diabetes mellitus wit h diabetic polyneuropathy acute September 25, 2024 8:30am Type 2 diabetes mellitus wit h hyperglycemia acute September 25 8:30am Medicare annual wellness vis it, subsequent noneactive September 25 8:30am [facility] Work Phone: History general Narrative - Reported* Type Description Date Medical History 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 Medical History Inflammatory polyarthropathy Medical History Herpes zoster with other complic ation Medical History Impetigo Medical History Hyperlipemia, mixed Medical History Benign prostatic hyp erplasia with lower urinary tract symptoms Medical History Essential hypertension Medical History Controlled type 2 di abetes mellitus with hyperglycemia, without long-term current use of insulin Medical History Controlled type 2 di abetes mellitus with diabetic polyneuropathy, without long-term current use of insulin Medical History Allergic contact alma matitis due to other chemical products Surgical History UMBILICAL HERNIA REPAIR 2006 Surgical History COLONOSCOPY 2016 Hospitalization History SEE SURGICAL HX [facility] Other Hospital course Narrative No data available for this section [facility] Hospital Discharge instructions No data available for this section [facility] progress note No data available for this section [facility] Summary Purpose Family History Relationship Condition Age at Onset Recorded Date/T jocelyn father Unknown Not Specified Unknown Relationship Condition Age at Onset Recorded Date/T jocelyn father Unknown mother Unknown Advance Directives Advance Directive Response Recorded Date/ Time Advance Directives No September 09, 2023 2:38pm Advance Directive Response Recorded Date/ Time Advance Directives No September 09, 2023 3:38pm Chief Complaint and Reason for Visit Chief Complaint [facility] Wellness Reason for Visit Benign prostatic hyp erplasia with lower urinary tract symptoms Chronic venous insufficiency of lower extremity intermodal truck driver (current) use of insulin [id number] Nocturia Primary hypertension Type 2 diabetes mellitus with diabetic polyneuropathy Type 2 diabetes mellitus with hyperglycemia Medicare annual wellness visit, subsequent Chief Complaint Amb Documentation 3 month follow up Reason for Visit Benign prostatic hyp erplasia with lower urinary tract symptoms Chronic venous insufficiency of lower extremity halfway (current) use of insulin [id number] Primary hypertension Type 2 diabetes mellitus with diabetic polyneuropathy Type 2 diabetes mellitus with hyperglycemia Chief Complaint wellness Reason for Visit Benign prostatic hyp erplasia with lower urinary tract symptoms Chronic venous insufficiency of lower extremity [id number] Primary hypertension Type 2 diabetes mellitus with diabetic polyneuropathy Type 2 diabetes mellitus with hyperglycemia Chief Complaint Admit Date flu shot July 30, 2024 3:35pm 4 month f/u September 25, 2024 8 :30am Reason for Visit Admit Date Chronic venous insufficiency of lower ex tremity September 25, 2024 8:30am Hypercholesterolemia September 25, 2024 8:30am Obesity September 25, 2024 8 :30am Primary hypertension September 25, 2024 8:30am Type 2 diabetes mellitus with diabetic p olyneuropathy September 25, 2024 8:30am Type 2 diabetes mellitus with hyperglyce jose ramon September 25, 2024 8:30am Medicare annual wellness visit, subseque nt September 25, 2024 8:30am Additional Source Comments REASON FOR VISIT (unrecogniz ed section and content) PrescriptionWELLNESSNo Infor mationprescription refill3 month Follow upLab ResultsNo InformationREFILL3 month Follow up3 month Follow upBP checkRefill3 month Follow upNew Meter3 month Follow uprefillTest StripsRefillPrescription needed Patient Care team informatio n (unrecognized section and content) Team Status: Active Member Role Status Dates Glenn Boswell , DO Primary Care Provider Active Team Status: Inactive Member Role Status Dates Glenn Boswell , DO Primary Care Provide r, Attending Provider Active Start: May 22, 2024 End: May 22, 2024 Team Status: Active Member Role Status Dates Glenn Boswell , DO Primary Care Provide r, Attending Provider Active Start: November 20, 2023 Team Status: Active Member Role Status Dates Glenn Boswell , Primary Care Provider Active Start: November 24, 2023 SUSANNE [place] Attending Provider Active St art: November 24, 2023 Team Status: Inactive Member Role Status Dates Glenn Boswell , DO Primary Care Provide r, Attending Provider Active Start: January 10, 2024 End: January 10, 2024 Team Status: Inactive Member Role Status Dates Glenn Boswell , DO Primary Care Provide r, Attending Provider Active Start: October 11, 2023 End: October 11, 2023 Team Status: Inactive Member Role Status Dates Glenn Boswell , DO Primary Care Provide r, Attending Provider Active Start: July 30, 2024 End: July 30, 2024 Team Status: Inactive Member Role Status Dates Glenn Elbert , DO Primary Care Provide r, Attending Provider Active Start: September 25, 2024 End: September 25, 2024 (unrecognized sect ion and content) No Status Records FoundNo Status Records Found INFORMATION SOURCE (unrecogn ized section and content) DATE CREATED AUTHOR 01/01/2023 [facility] DATE CREATED AUTHOR AUTHOR'S ORGANIZ ATION 11/30/2023 [facility] Goals (unrecognized section and content) Goals may be documented in a n alternate section FOR RECORDS PERTAINING TO PATIENTS WHO ARE OR HAVE BEEN ENROLLED IN A CHEMICAL DEPENDENCY/SUBSTANCEABUSE PROGRAM, SOME INFORMATION MAY BE OMITTED. This clinical summary was aggregated from multiple sources. Caution should be exercised in using it in the provision of clinical care. This summary normalizes information from multiple sources, and as a consequence, information in this document may materially change the coding, format and clinical context of patient data. In addition, data may be omitted in some cases. CLINICAL DECISIONS SHOULD BE BASED ON THE PRIMARY CLINICAL RECORDS. [facility]. provides no warranty or guarantee of the accuracy or completeness of information in this document.
[2024-09-27 08:56] LABS: Basophils Percent Auto 0.6 % (0.2-2.0); Eosinophils Absolute Auto 0.2 10^3/uL (0.0-0.7); Eosinophils Percent Auto 3.4 % (0.9-7.0); Hematocrit 41.3 % (42.0-54.0); Hemoglobin 13.4 g/dL (14.0-18.0); Immature Granulocytes Abs Auto 0.01 10^3/uL (0.00-0.03); Immature Granulocytes Pct Auto 0.2 % (0.0-0.5); Lymphocytes Absolute Auto 1.4 10^3/uL (1.2-3.8); Lymphocytes Percent Auto 26.7 % (20.5-60.0); Mean Corpuscular HGB Conc 32.4 g/dL (29.9-35.2); Mean Corpuscular Volume 86.2 fL (80.0-94.0); Mean Platelet Volume 9.8 fL (9.5-13.5); Monocytes Absolute Auto 0.6 10^3/uL (0.3-0.8); Monocytes Percent Auto 11.4 % (1.7-12.0); Neutrophils Percent Auto 57.7 % (43.0-75.0); Platelet Count 224 10^3/uL (150-450); Red Blood Count 4.79 10^6/uL (4.70-6.10); Red Cell Distribution Width 13.4 % (11.0-15.0); White Blood Count 5.3 10^3/uL (4.0-11.0)
[2024-09-27 09:01] LABS: Microalbum Creatinine Ratio Ur 137.1 mg/g (0.0-29.9); Microalbumin Urine Random 21.6 mg/dL (<=30.0)
[2024-09-27 10:55] LABS: Alanine Aminotransferase 18 U/L (16-63); Albumin Globulin Ratio 0.9; Albumin Level 3.4 g/dL (3.4-5.0); Alkaline Phosphatase 75 U/L (46-116); Aspartate Amino Transferase 16 U/L (15-37); Bilirubin Total 0.6 mg/dL (0.2-1.0); Calcium 8.9 mg/dL (8.5-10.1); Carbon Dioxide 28.6 mmol/L (21.0-32.0); Chloride 104 mmol/L (98-107); Chol HDL Ratio 3.3; Cholesterol 179 mg/dL (<=200); Estimated GFR (African America >60 (>=60 mL/min/1.73m^2); Estimated GFR (Non-African Ame 57 (>=60 mL/min/1.73m^2); Globulin 3.6 g/dL; Glucose 128 mg/dL (74-106); HDL Cholesterol 55 mg/dL (40-60); Potassium 4.6 mmol/L (3.5-5.1); Sodium 140 mmol/L (136-145); Triglycerides 85 mg/dL (<=150)
[2024-09-27 13:07] LABS: Estimated Average Glucose 151 mg/dL; Glycohemoglobin A1C 6.9 % (4.5-6.2)
== END 2024-09-27 08:10 | disposition home or self-care (01) ==
LOC: LAB 08:11
PROVIDERS: PCP Internal Medicine; Visit Provider Internal Medicine
DX: I87.2 Venous insufficiency (chronic) (peripheral) (principal); I10 Essential (primary) hypertension; E11.65 Type 2 diabetes mellitus with hyperglycemia; Z79.4 Long term (current) use of insulin; E78.00 Pure hypercholesterolemia, unspecified
CPT/HCPCS: 36415; 80053; 80061; 82043; 82570; 83036; 85025